=== PATIENT | male | born 1970 | race Caucasian/White ===

== ENCOUNTER 2018-01-31 16:00 | Emergency (ER) | payer OTHER, SELFPAY ==
[2018-01-31 16:08] VITALS: BP 146/88; PULSE 101; RESP 16; TEMP 36.9; O2SAT 97
--- NOTE | 2018-01-31 16:44 | ED.GENADUL_ITS ---
Disposition Clinical Impression: Laceration of scalp Disposition: HOME Condition: Good Instructions: Laceration (ED), Skin Adhesive Care (ED) Additional Instructions: Do not scrub the area or scratch the area. If you notice any r fever, chills, difficulty seeing, worsening numbness tingling pain or redness please return immediately. Please follow-up with your primary care provider within the next 1 -2 weeks for reevaluation. If you notice any worsening of your symptoms, or any new symptoms such as vomiting, diarrhea, fever, chills, shortness of breath , chest pain, numbness, weakness, or fainting , please return immediately to the emergency department for reevaluation. Please follow up with your primary care provider as soon as possible for reassessment and reevaluation. As always, it was a pleasure participating in your medical care today. Medical Decision Making - Medical Decision Making This is a pleasant 47-year-old male who presents for evaluation of laceration of the right brow. Physical exam demonstrates a small 1 cm laceration with no evidence of deep tissue involvement. Normal vision, normal movement of the eye, normal sensation on exam. Patient's laceration was irrigated and cleansed with chlorhexidine. The area was then Dermabond it with good wound edge reapproximation and excellent hemostasis. Tetanus is up-to- date. Patient tolerated the procedure well. He has been discharged home after discussion of red flags which returned. I have extensively reviewed the treatment plan and discharge instructions with the patient. I have addressed all patient concerns at this time. The patient was made aware of what symptoms to monitor for that would warrant a return to the emergency department. Discussed the plan with the patient, they demonstrate verbal understanding and agreement with our assessment and plan at this time. History of Present Illness - General Chief complaint: Laceration Stated complaint: HIT W CROWBAR Time Seen by Provider: 01/31/18 16:42 - History of Present Illness Initial comments: This is a pleasant 47-year-old male with no past medical history who presents for laceration over his right brow. The patient states that he was pulling at a nail with a crowbar when the nail came out the crowbar jumped up and hit him in his right brow. In a small superficial laceration, but due to the bleeding, and concern for potential increased in depth of the laceration he came to the ER for evaluation. In addition to the bleeding and small laceration he does complain of small bit of tingling on the right lateral aspect of his right brow. No vision changes, no pain with movement of his eye, no pain with palpation of the brow. Patient denies any headache, or any other complaints at this time. Patient denies any previous surgical history. He denies any IV or illicit drug use. He denies any pertinent family history. His tetanus is up-to-date. He has no other complaints at this time. - Related Data Ranitidine HCl [Zantac 75] 75 mg PO PRN 03/16/14 Ibuprofen 400 mg PO PRN PRN 03/17/14 Allergies Allergy/AdvReac Type Severity Reaction Status Date / Time animal dander Allergy Intermediate Asthma-like Uncoded 01/31/18 16:19 reaction Review of Systems Other: 10 point review of systems was performed, pertinent positives and negatives are noted in the history of present illness. General Exam - Other Other exam information: 1.Const: Well-nourished, Well-developed, appearing stated age 2.Eyes: PERRL, no conjunctival injection, and symmetrical lids. 3.ENT: Atraumatic external nose and ears. Moist MM. Neck: Symmetric, trachea midline, No thyromegaly. There is no evidence of raccoon eyes, gray sign, CSF rhinorrhea, mastoid tenderness, cranial crepitus, hemotympanum, exophthalmos , or hyphema. Patient demonstrates intact dentition with no signs of tooth avulsion or fracture, no signs of jaw deformity, no evidence of a LeFort's fracture, with an intact palate, nose and orbital region. There is no evidence of a nasal septal hematoma. No proptosis. Jaw closes symmetrically. Airway is clear. Patient does demonstrate a very small 1 cm relatively linear laceration over the right brow. No active bleeding. No evidence of deep tissue involvement. Sensation is intact around the eye. Normal sharma of vision, normal planes of vision. 4.CVS: +S1/S2, No murmurs or gallops. Peripheral pulses 2+ and equal in all extremities. Brisk capillary refill in all extremities. 5.RESP: Unlabored respiratory effort. Clear to auscultation bilaterally. No wheezes rales or rhonchi 6.GI: Soft, Nontender/Nondistended, No hepatosplenomegaly. No guarding or rebound. 7.MSK: Normocephalic/Atraumatic, Extremities w/o deformity or ttp No cyanosis or clubbing, Normal movement of all extremities 8.Skin: Warm, Dry. No rashes or lesions. 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 Sensation grossly intact, no focal neurologic deficits. 10.Psych: (AAO) x3. Appropriate mood and affect Course Vital Signs - 24 hr 01/31/18 16:08 Temperature 36.9 C Pulse 101 H Respiratory 16 Rate Blood Pressure 146/88 Pulse Oximetry 97
== END 2018-01-31 17:02 | disposition home or self-care (01) ==
PROVIDERS: Emergency Provider Student in an Organized Health Care Education/Training Program; PCP Nurse Practitioner
DX: S01.01XA Laceration without foreign body of scalp, initial encounter (principal); W27.8XXA Contact with other nonpowered hand tool, initial encounter
CPT/HCPCS: 12001

== ENCOUNTER 2018-10-21 00:55 | Outpatient (CLI) | payer OTHER, SELFPAY ==
--- NOTE | 2018-10-21 13:00 | DI.RAD_ITS ---
SYMPTOMS/DIAGNOSIS: DEGENERATIVE DISC DISEASE, LUMBAR SPINE, M51.36; ACUTE BACK PAIN, M54.89 LUMBOSACRAL SPINE: Five views were obtained. There is disc space narrowing at L4-5 and L5-S1 consistent with disc degeneration. There are prominent hypertrophic changes involving the vertebral endplates and facet joints at these levels, also consistent with degenerative disease. There is a mild left convex lumbar scoliosis. No other significant bony abnormality seen. CONCLUSION: DJD and degenerative disc disease at L4-5 and L5-S1. No additional significant findings.
== END 2018-10-21 01:15 ==
PROVIDERS: PCP Nurse Practitioner Family; Visit Provider Nurse Practitioner Family
DX: M54.5 Low back pain (principal); M51.37 Other intervertebral disc degeneration, lumbosacral region; M47.817 Spondylosis without myelopathy or radiculopathy, lumbosacral region
CPT/HCPCS: 72110

== ENCOUNTER 2019-03-29 11:51 | Outpatient (REF) | payer OTHER, SELFPAY ==
--- NOTE | 2019-03-29 09:40 | SKI_PTH ---
PATIENT: Teofilo Ghosh LOC: [facility] U#:[id number] AGE/SX: 48/M ROOM: RE03/29/[address]: Haris Ruano : 1970 BED: DIS: 03/29/2019 SPEC #: [id number] RECD: 03/29/19 13:01 STATUS: SHAYY RE #: [id number] BRANDIE: 03/29/19 09:[address]: Haris Ruano DEPT: Surgical Specimen RECD BY: Lucila Michaud ENTERED: 03/29/19 13:01 SP TYPE: DEANDRE SOLIS DR: Hoa Aguirre Tissues: 1 - SKIN BIOPSY(SHAVE/PUNCH) Procedures: SKIN LEVEL 4 Comments: [id number]
== END 2019-03-29 12:11 ==
LOC: NCHCN 11:51
PROVIDERS: PCP Nurse Practitioner Family; Visit Provider Specialist/Technologist Athletic Trainer
DX: D22.5 Melanocytic nevi of trunk (principal)
CPT/HCPCS: 88305

== ENCOUNTER 2020-04-18 11:51 | Outpatient (REF) | payer OTHER, SELFPAY ==
[2020-04-18 22:27] LABS: Calculated LDL 97 mg/dL (<100); Cholesterol 187 mg/dL (<200); Glucose 94 mg/dL (74-106); HDL Cholesterol 40 mg/dL (40-60); Triglyceride 254 mg/dL (<150)
[2020-04-23 15:51] LABS: PSA, Screening 0.4 ng/mL (0-3.5)
[2020-04-26 15:32] LABS: Hepatitis C Ab w Rflx HCV PCR Negative (Negative)
== END 2020-04-18 12:11 ==
LOC: NCHCN 11:51
PROVIDERS: PCP Nurse Practitioner Family
DX: Z00.00 Encounter for general adult medical examination without abnormal findings (principal); L57.0 Actinic keratosis; E66.9 Obesity, unspecified
CPT/HCPCS: 80061; 82947; 84153; 86803

== ENCOUNTER 2020-04-26 01:44 | Outpatient (CLI) | payer OTHER, SELFPAY ==
--- NOTE | 2020-04-26 11:00 | NS.NUTBLAN_ITS ---
50 year old male referred for Medical Nutrition Therapy for morbid obesity. 5'10 300 lbs BMI 44. Teofilo reports that he does not follow any regular exercise due to recent back/leg pain. He has gained 50 lbs in last couple of years. Strong family hx of IDDM. Goal weight 250 lbs. Diet recall indicates high intake of simple sugars in form on breads, juice. Mostly balanced home cooked meals and no excess in calories and servings reported. Educated Teofilo on how to follow lower carb, higher protein diet with focus on complex carbs, lean protein and non starchy vegetables. Also, encouraged him to use his exercise bike for 30 min 5 times weekly. Meal plans and recipes provided. Teofilo was engaged in education and motivated to make positive changes to improve his health. Goal is for 10 lbs weight loss per month with initial weight goal of 250 lbs. No follow up visit planned at this time.
== END 2020-04-26 02:04 ==
PROVIDERS: PCP Nurse Practitioner Family; Visit Provider Dietitian, Registered
DX: E66.01 Morbid (severe) obesity due to excess calories (principal); Z71.3 Dietary counseling and surveillance
CPT/HCPCS: 97802

== ENCOUNTER 2020-05-07 02:32 | Outpatient (CLI) | payer OTHER, SELFPAY ==
[2020-05-08 16:50] LABS: COVID-19 RT-PCR UVMMC Result Negative (Negative)
== END 2020-05-07 02:52 ==
PROVIDERS: PCP Nurse Practitioner Family; Visit Provider Surgery
DX: Z11.59 Encounter for screening for other viral diseases (principal); Z01.818 Encounter for other preprocedural examination
CPT/HCPCS: U0003

== ENCOUNTER 2020-05-10 10:15 | Day surgery (SDC) | payer OTHER, SELFPAY ==
--- NOTE | 2020-05-10 09:55 | W.COLOREPORT ---
Date of service: 05/10/20 Time of Service: 09:56 Colonoscopy Report Date of procedure: 05/10/20 Pre-op diagnosis general: CRC screen Post-op diagnosis procedure note: other Surgeon: Carmen Jean Anesthesia proc note operative: GETA Estimated blood loss (mL): 1 Pathology: other Disposition: same day Prep: Miralax/Dulcolax Retraction Time: 15 Procedure Description: After informed consent was obtained the patient was taken to the procedure room and placed in a left decubitous position. Monitors were applied and a time out was done. The patients name, date of , procedure, allergies to medications and metal in their body was reviewed. The patient was then sedated. Once sedated and comfortable a rectal exam was done. External exam was normal. Internal exam revealed a normal sphincter tone and no palpable masses. The scope was then introduced and retrofelexed. No internal hemorrhoids were identified. The scope was then advanced to the cecum w/out difficulty. The TI and appendiceal orifice were identified. The prep was good. The scope was then slowly retracted over 15 minutes back into the rectum. Polyps were removed at cecum. Flat 1cm polyp. Removed in piecemeal w/ cold forcept. All specimen is retrieved with no bleeding noted. He has mild diverticul confined to the sigmoid colon with no signs of active bleeding or infection. The scope was removed and the patient was woken up and taken back to Same day surgery in stable condition. The patient tolerated the procedure well and there were no immediate complications. Follow up: The patient should follow up in 5-10 path pd, years unless they develop changes in bowel habits or other new gastrointestinal complaints.
--- NOTE | 2020-05-10 09:56 | W.PM.DS.N ---
Date of service: 05/10/20 Time of Service: 09:56 Discharge Plan Disposition Patient Disposition: HOME Condition: Good Discharge Details Reason For Visit: colon Attending Provider: Carmen Jean Primary Care Provider: Hoa Aguirre Home Meds and New Rx's Prescriptions: Continued cholecalciferol (vitamin D3) 50 mcg (2,000 unit) capsule 50 mcg PO DAILY RF: 0 albuterol sulfate [ProAir HFA] 90 mcg/actuation HFA aerosol inhaler 2 puff inhalation Q6H PRNRF: 0 triamcinolone acetonide 0.1 % cream 1 applic topical BID RF: 0 ibuprofen 200 MG tablet 400 mg PO PRN PRN (Reason: Pain) RF: 0 terbinafine HCl 1 % Cream 1 applic TOPICAL BID RF: 0 Discharge Instructions Additional Instructions: Findings:x1 sm polyp diverticula Follow up:5-10 yrs. Send a letter with the results of pathology in 2 to 3 weeks, and when to repeat the colonoscopy. Please call if you develop: fevers >101.5 Nausea or Vomiting Abdominal pain that is not transient DAY SURGERY UNIT POST COLONOSCOPY INSTRUCTIONS 1. Because there will be medication in your system for the next 24 hours, you may feel a little sleepy. Your coordination will be affected. Therefore: a. Do not drive or operate dangerous equipment for 24 hours. b. Do not drink alcohol beverages for 24 hours (not even beer). c. Plan to go home and rest for the day. 2. Generally there are no restrictions on your activity after a day or so has gone by, but you may feel a bit fatigued for a few days. 3 After you arrive home you may have a light meal and return to a normal diet as you can tolerate it without feeling sick to your stomach. 4. After surgery, you may feel pain or discomfort. This should be only transient, but if it persists please contact your doctor. 5. If there are any questions regarding the findings of your procedure, please feel free to contact your doctor. 6. If you are unable to contact your doctor with a problem, contact the hospital at [phone]. 7. Continue all your regular medications unless directed otherwise. I understand the above instructions and have no questions. Signature of Patient or Responsible Adult Escort Date/Time Name of Responsible Adult Escort Signature of Nurse Date/Time Activity:: No strenuous activity or lifting over 20 pounds time 24 hours. Diet:: Small light meals x24 hours Discharge Orders Discharge Orders: Discharge Order (Routine); Ordered 05/10/20 Ordered By: Carmen Jean [facility] Medical History Allergic rhinitis Animal dander allergy Back pain, acute Degenerative disc disease, lumbar History of asthma History of head injury Hx of fracture of ankle screws present Mood disorder Nevus, atypical Obesity Rash Shellfish allergy Skin tag Social History (Updated 04/26/20 @ 10:35 by RACHEL Garces) Smoking/Tobacco Use Status: Never Smoking risk assessment performed?: Yes Alcohol Intake: current Alcohol Intake frequency: holidays/special occasions only Drug use: Never Substance use type: does not use Do you feel safe at home: Yes Do you feel safe in your relationship?: Yes
[2020-05-10 10:33] VITALS: BP 141/86; PULSE 84; RESP 20; TEMP 36.7; O2SAT 99
[2020-05-10] MEDS: Lactated Ringers 1,000 ML 80 ML IV (11:20)
--- NOTE | 2020-05-10 11:45 | BOWEL_PTH ---
PATIENT: Teofilo Ghosh LOC: [facility] U#:[id number] AGE/SX: 50/M ROOM: RE05/10/[address]: Carmen Jean : 1970 BED: DIS: 05/10/2020 SPEC #: [id number] RECD: 05/10/20 12:33 STATUS: SHAYY REQ #: [id number] BRANDIE: 05/10/20 11:[address]: Carmen Jean DEPT: Surgical Specimen RECD BY: Lucila Michaud ENTERED: 05/10/20 12:34 SP TYPE: Bowel OTHR DR: Hoa Aguirre Tissues: 1 - BIOPSY BOWEL Procedures: GROSS AND MICRO LEVEL 4 Comments: [id number]
--- NOTE | 2020-05-10 12:18 | PDOC.DSDIS_ITS ---
Discharge Plan Disposition Patient Disposition: HOME Condition: Good Discharge Details Reason For Visit: colon Attending Provider: Carmen Jean Primary Care Provider: Hoa Aguirre Home Meds and New Rx's Prescriptions: Continued cholecalciferol (vitamin D3) 50 mcg (2,000 unit) capsule 50 mcg PO DAILY RF: 0 albuterol sulfate [ProAir HFA] 90 mcg/actuation HFA aerosol inhaler 2 puff inhalation Q6H PRNRF: 0 triamcinolone acetonide 0.1 % cream 1 applic topical BID RF: 0 ibuprofen 200 MG tablet 400 mg PO PRN PRN (Reason: Pain) RF: 0 terbinafine HCl 1 % Cream 1 applic TOPICAL BID RF: 0 Discharge Instructions Additional Instructions: Findings:x1 sm polyp diverticula Follow up:5-10 yrs. Send a letter with the results of pathology in 2 to 3 weeks, and when to repeat the colonoscopy. Please call if you develop: fevers >101.5 Nausea or Vomiting Abdominal pain that is not transient DAY SURGERY UNIT POST COLONOSCOPY INSTRUCTIONS 1. Because there will be medication in your system for the next 24 hours, you may feel a little sleepy. Your coordination will be affected. Therefore: a. Do not drive or operate dangerous equipment for 24 hours. b. Do not drink alcohol beverages for 24 hours (not even beer). c. Plan to go home and rest for the day. 2. Generally there are no restrictions on your activity after a day or so has gone by, but you may feel a bit fatigued for a few days. 3 After you arrive home you may have a light meal and return to a normal diet as you can tolerate it without feeling sick to your stomach. 4. After surgery, you may feel pain or discomfort. This should be only transient, but if it persists please contact your doctor. 5. If there are any questions regarding the findings of your procedure, please feel free to contact your doctor. 6. If you are unable to contact your doctor with a problem, contact the hospital at [phone]. 7. Continue all your regular medications unless directed otherwise. I understand the above instructions and have no questions. Signature of Patient or Responsible Adult Escort Date/Time Name of Responsible Adult Escort Signature of Nurse Date/Time DIVERTICULAR DISEASE OVERVIEW ? A diverticulum is a pouch-like structure that can form through points of weakness in the muscular wall of the colon (ie, at points where blood vessels pass through the wall). Diverticulosis affects men and women equally. The risk of diverticular disease increases with age. It occurs throughout the world but is seen more commonly in developed countries. WHAT IS DIVERTICULAR DISEASE? Diverticulosis ? Diverticulosis merely describes the presence of diverticula. Diverticulosis is often found during a test done for other reasons, such as flexible sigmoidoscopy, colonoscopy, or barium enema. Most people with diverticulosis have no symptoms and will remain symptom free for the rest of their lives. A person with diverticulosis may have diverticulitis, or diverticular bleeding. Diverticulitis ? Inflammation of a diverticulum (diverticulitis) occurs when there is thinning and breakdown of the diverticular wall. This may be caused by increased pressure within the colon or by hardened particles of stool, which can become lodged within the diverticulum. The symptoms of diverticulitis depend upon the degree of inflammation present. The most common symptom is pain in the left lower abdomen. Other symptoms can include nausea and vomiting, constipation, diarrhea, and urinary symptoms such as pain or burning when urinating or the frequent need to urinate. Diverticulitis is divided into simple and complicated forms. ?Simple diverticulitis, which accounts for 75 percent of cases, is not associated with complications and typically responds to medical treatment without surgery. ?Complicated diverticulitis occurs in 25 percent of cases and usually requires surgery. Complications associated with diverticulitis can include the following: ?Abscess ? a localized collection of pus ?Fistula ? an abnormal tract between two areas that are not normally connected (eg, bowel and bladder) ?Obstruction ? a blockage of the colon ?Peritonitis ? infection involving the space around the abdominal organ ?Sepsis ? overwhelming body-wide infection that can lead to failure of multiple organs Diverticular bleeding ? Diverticular bleeding occurs when a small artery located within a diverticulum is eroded and bleeds into the colon. Diverticular bleeding usually causes painless bleeding from the rectum. In approximately 50 percent of cases, the person will see maroon or bright red blood with bowel movements. Is bleeding with a bowel movement normal? ? It is not normal to see blood in a bowel movement; this can be a sign of several conditions, most of which are not serious (eg, hemorrhoids) but some of which are serious and require immediate treatment. Anyone who sees blood after a bowel movement should consult with their healthcare provider to determine if further testing or evaluation is needed. DIVERTICULOSIS AND DIVERTICULITIS DIAGNOSIS ? Diverticulosis is often found during tests performed for other reasons. ?Barium enema ? This is an x-ray study that uses barium in an enema to view the outline of the lower intestinal tract. This is an older test and has been largely replaced by computed tomography (CT) scan. ?Flexible sigmoidoscopy ? This is an examination of the inside of the sigmoid colon with a thin, flexible tube that contains a camera. ?Colonoscopy ? This is an examination of the inside of the entire colon. ?CT scan ? A CT scan is often used to diagnose diverticulitis and its complications. If diverticulitis (not just diverticulosis) is suspected, the above three tests should not be used because of the risk of perforation. TREATMENT Diverticulosis ? People with diverticulosis who do not have symptoms do not require treatment. However, most clinicians recommend increasing fiber in the diet, which can help to bulk the stools and possibly prevent the development of new diverticula, diverticulitis, or diverticular bleeding. Fiber is not proven to prevent these conditions in all patients but may help to control recurrent episodes in some. Increase fiber ? Fruits and vegetables are a good source of fiber. Fiber content of packaged foods can be calculated by reading the nutrition label. Seeds and nuts ? Patients with diverticular disease have historically been advised to avoid whole pieces of fiber (such as seeds, corn, and nuts) because of concern that these foods could cause an episode of diverticulitis. However, this belief is completely unproven. We do not suggest that patients with diverticulosis avoid seeds, corn, or nuts. Diverticulitis ? Treatment of diverticulitis depends upon how severe your symptoms are. Home treatment ? If you have mild symptoms of diverticulitis (mild abdominal pain, usually left lower abdomen), you can be treated at home with a clear liquid diet and oral antibiotics. However, if you develop one or more of the following signs or symptoms, you should seek immediate medical attention: ?Temperature >100.1?F (38?C) ?Worsening or severe abdominal pain ?An inability to tolerate fluids Hospital treatment ? If you have moderate to severe symptoms, you may be hospitalized for treatment. During this time, you are not allowed to eat or drink; antibiotics and fluids are given into a vein. If you develop an abscess of the colon, you may require drainage of the abscess (usually performed by placing a drainage tube across the abdominal wall) or by surgically opening the affected area. Surgery ? If you develop a generalized infection in the abdomen (peritonitis), you will usually require an emergency operation. A two-part operation may be necessary in some cases. ?The first operation involves removal of the diseased colon and creation of a colostomy. A colostomy is an opening between the colon and the skin, where a bag is attached to collect waste from the intestine. The lower end of the colon is temporarily sewed closed to allow it to heal. ?Approximately three to six months later, a second operation is performed to reconnect the two parts of the colon and close the opening in the skin. You are then able to empty your bowels through the rectum. Sometimes patients require up to a year to recover from the first operation, depending on how sick they were. In non-emergency situations, the diseased area of the colon can be removed and the two ends of the colon can be reconnected in one operation, without the need for a colostomy. Surgery versus medical therapy ? An operation to remove the diseased area of the colon may be necessary if you do not improve with medical therapy. After an episode of uncomplicated diverticulitis, elective surgery is generally not required as the risk of another attack or requiring emergency surgery is low. However, patients with persistent symptoms attributable to diverticulitis, a history of complicated diverticulitis, or a compromised immune system should be evaluated for possible surgery to prevent another attack. In such patients, another attack has been associated with a higher risk of complications or . Of course, the decision will also depend in part upon your other medical conditions and ability to undergo surgery. In many cases, an elective operation can be performed laparoscopically, using small incisions, rather than the typical vertical (up and down) abdominal incision. Laparoscopic surgery usually allows you to recover more quickly and shortens the hospital stay. After diverticulitis resolves ? After an episode of diverticulitis resolves, if you have not had a recent colonoscopy, the entire length of the colon should be evaluated to determine the extent of disease and to rule out the presence of abnormal lesions such as polyps or cancer. Recommended tests include colonoscopy, barium enema and sigmoidoscopy, or CT colonography. Diverticular bleeding ? Most cases of diverticular bleeding resolve on their own. However, some people will need further testing or treatment to stop bleeding, which may include a colonoscopy, angiography (a treatment that blocks off the bleeding artery), bleeding scan, or surgery. DIVERTICULAR DISEASE PROGNOSIS Diverticulosis ? Over time, diverticulosis may cause no problems or it may cause episodes of bleeding and/or diverticulitis. Approximately 15 to 25 percent of people with diverticulosis will develop diverticulitis, while 5 to 15 percent will develop diverticular bleeding. Diverticulitis ? Approximately 85 percent of people with uncomplicated diverticulitis will respond to medical treatment, while approximately 15 percent of patients will need an operation. After successful treatment for a first attack of diverticulitis, one-third of patients will remain asymptomatic, one- third will have episodic cramps without diverticulitis, and one-third will go on to have a second attack of diverticulitis. The prognosis tends to remain similar following a second attack of dive rticulitis. Only 10 percent of people remain symptom-free after a second attack. Subsequent attacks tend to be of similar severity, not increasing in severity as previously believed. High Fiber Diet What is Dietary Fiber? All fiber comes from plants, bushes, marzena or trees. Of course, the ones that we eat provide us with fruits, vegetables and grains. There are many different types of fiber but the three that are most important to the health of the body are: Insoluble Fiber This fiber does not dissolve in water, nor is it fermented by the bacteria residing in the colon. Rather, it retains water and in so doing, helps to promote a larger, bulkier and more regular bowel activity. This, in turn, may be important in preventing disorder such as diverticulosis and hemorrhoids, and in sweeping out certain toxins and cancer causing carcinogens. Sources of insoluble fiber are: ? whole grain wheat and other whole grains ? corn bran, including popcorn, unflavored and unsweetened ? nuts and seeds ? potatoes and the skins from most fruits from trees such as apples, bananas and avocados ? many green vegetables such as green beans, zucchini, celery and cauliflower ? some fruit plants such as tomatoes and kiwi Soluble Fiber These fibers are fermented or used by the colon bacteria as a food source or nourishment. When these good bacteria grow and thrive, many health benefits occur in both the colon and the body. Soluble fiber is present in some degree in most edible plant foods, but the ones with the most soluble fiber include: ? legumes such as peas and most beans, including soybeans ? oats, rye and barley ? many fruits such as berries, plums, apples bananas and pears ? certain vegetables such as broccoli and carrots ? most root vegetables ? psyllium husk supplement products Prebiotic Soluble Fiber These are relatively newly discovered soluble plant fibers. The technical name for this fiber is inulin or fructan. When these soluble fibers are fermented by the good colon bacteria, some further significant health benefits have been shown to occur by research in many medical centers. These soluble prebiotic fibers occur in significant amounts in: ? asparagus ? yams ? onions ? garlic ? bananas ? leeks ? agave ? chicory and other root vegetables such as [place] artichokes ? wheat, rye and barley (smaller amounts) Benefits of a High Fiber Diet The health benefits of a high fiber diet, consumed on a regular basis and reaching recommended amounts (below), are now fairly well-defined. There are some additional benefits in the early research stage with the prebiotic soluble fibers. What is now known regarding a high fiber diet include: Bowel Regularity A high fiber diet promotes regularity with a softer, bulkier and regular stool pattern. This decreases the chance of hemorrhoids, diverticulosis and perhaps colon cancer. Cholesterol and Reduced Triglycerides The soluble fibers are the ones that will reduce cholesterol levels when used on a regular basis. Psyllium husk and prebiotic soluble fiber will also reduce cholesterol. They may also reduce the incidence of coronary heart disease. Oats, flax seeds and legumes or beans are the recommended fibers. Colon Polyps and Cancer It is still not certain if a high fiber diet helps prevent colon cancer. Considerable research suggests that this may occur. Certainly it makes sense to increase regularity and so speed the movement of cancer causing carcinogens through the bowel. In addition, reducing a heavy meat diet reduces the bile flow from the liver in a favorable way. This, too, reduces the amount of carcinogens that reach and are manufactured in the colon. Finally, a high fiber diet, including prebiotic soluble fiber, increases the integrity and health of the wall of the colon. The risk of cancer may be reduced. Colon Wall Integrity A high fiber diet changes the bacterial makeup of the colon toward a more favorable balance. For instance, it is known that those people with obesity, diabetes type 2 and inflammatory bowel disease have a predominance of bad bacteria in the colon. This, in turn, may render the bowel wall weak and allow bacteria and, indeed, even toxins to seep through. A high fiber diet with a modest reduction in animal and meat products may return the bacterial makeup to a more positive balance. This, in particular, has been seen when the soluble fiber prebiotics are added to the diet. Blood Sugar Soluble fiber such as in legumes (beans), oats and in prebiotic fibers slows the absorption of blood sugar and so helps regulate the sugar in the blood. Insoluble fiber on a regular basis is associated with reduced risk of type 2 diabetes. Weight Loss High fiber diets are more filling and give a sense of fullness sooner than an animal and meat based diet does. In addition, the soluble prebiotic fibers have been shown to turn off the hunger hormones produced in the wall of the gut and to increase the hormones that give a sense of fullness. Those hormones are made in the wall of the gut. New medical research has shown that the bacterial makeup in the colon in overweight people is abnormal to the extent that they manufacture and absorb almost twice the number of calories through the colon wall as do normals. Prebiotic fibers (below) will help change this hormonal balancein a favorable way. Bacteria and the Function of the Colon The colon finishes the digestive process. Hopefully, the waste products move through in a nice regular manner. Insoluble fibers help this process by retaining water and so producing a bulkier, softer stool, which is easy to pass. The additional role of the colon is to provide a home for an enormous number of micro-organisms, mostly bacteria. Recent research has shown that there are over 1,000 species of bacteria with a total bacterial count ten times the number of cells in the body. These bacteria play a major role in keeping the colon wall itself healthy. In addition, these good bacteria produce a very strong immune system for the body. They significantly increase calcium absorption and bone density. They provide other documented benefits. It is the soluble fibers in the diet that are so effective in stimulating the growth of good colon bacteria. How Much is Enough? The amount of fiber in food is measured in grams. National nutritional authorities recommend the following amounts of dietary fiber daily. Under Age 50 Over Age 50 Men 38 grams 30 grams Women 25 grams 21 grams For a week or so, it is best to tally the amount of fiber you are consuming. Boxed and packaged foods will have the amount of fiber per serving on the nutrition label. Which Fibers and Which Foods are Best? As noted, healthy fiber is only found in plants. The three major categories are whole grains, fruits and vegetables. Whole Grains Wheat, oats, barley, wild or brown rice, amaranth, buckwheat, bulgur, corn, millet, quinoa, rye, sorghum, teff and triticals. By far, wheat, oats and wild or brown rice are most common. Always buy whole grain products. White bread, baked goods and rolls almost always are made from wheat flour. Wheat flour is white because most of the fiber, vitamins and other nutrients have been removed. Try not buy enriched grains. What this means is that simple white flour has had vitamins added to it by the international trade teacher. The word, enriched, implies a good and healthy product. On the contrary, enriched means that most of the fiber has been removed and a few vitamins added. Fruits Fruits come from trees such as apple and pear or from bushes or marzena. You should eat a wide variety of fruits, preferably with every meal. In many cases, the skin of a fruit such as apple will contain much of the insoluble fiber while the pulp contains most of the soluble fiber. To the extent possible, buy organic fruits as these will have little or no pesticides. Always wash fruit. Vegetables Eat a wide variety of vegetables. They should be a mainstay of lunch and dinners. Frozen vegetables retain as much nutrition and fiber as fresh vegetables. As with fruit, try to buy organic to reduce any residual pesticide ingestion. Wash fresh vegetables thoroughly. Cruciferous vegetables such as broccoli, [place] sprouts and cauliflower contain certain chemicals such as sulforaphane. This substance has very strong anti-cancer properties and should be eaten frequently. Legumes, Beans, Peas and Soybeans These vegetables have plenty of soluble fiber and should be part of a varied vegetable intake. Beans, in particular, contain a certain type of fiber that may lead to harmless gas or bloating. Nuts and Seeds These are rich sources of fiber and are a good substitute for sweets such as candies and baked sweet goods. While nuts and seeds are rich in fiber, they also contain vegetable fat and so can and do add calories. Read the Labels As noted, fresh and frozen foods are usually better. They have good nutrition and few, if any, chemicals added to them. When buying packaged foods and, in particular grains, look for three things: ? The first word on the label should be whole, such as whole wheat or whole grain. ? Check out the calories and the amount of fiber in a serving. ? How many and what other additives or chemicals are added. Fewer is always better. Do you know what each additive does? Some are added not for the benefit of the supervisor spring up but rather for manufacturers. These could and do include sugar, artificial flavor, chemicals to prevent oxidation and spoilage, emulsifiers to blend the product. You have to be a service station helper. Fiber Facts, Nuggets and Pearls ? For breakfast you can easily get the day started well by using a high fiber, whole grain cereal. Check the labels. Add fruit such as blueberries and bananas. If you are an egg eater, use whole wheat or grain toast. Adding wheat germ gives you a good fiber kick. ? Always use whole grain or wheat with rolls and sandwiches. Does your fast food store not have them? Perhaps you look elsewhere. Eating an occasional black burrows or veggie burger provides variety. ? Snacks should consist of fruit and/or nuts. While nuts are loaded with fiber, they are an energy rich food, meaning they have a lot of calories in a small packet. ? Fruit juices should contain pulp. Clear juices such as clear orange, pear or apple juice contain little fiber and have a lot of fructose. Prune juice is usually high in fiber. ? Homemade soups ? adding fresh or frozen vegetables to a chicken or vegetable stock is a good way to start homemade soup. ? Salads ? adding cooked and then chilled vegetables provide great flavoring to almost any salad. Remember, a shirley salad has lots of cooked corn in it. Small slices of apples or oranges and nuts such as chopped walnuts or sliced almonds always adds taste, variety and fiber to almost any salad. ? Fruit ? Try to eat fruit of some type with almost every meal. ? Rethink how you place the various foods on your dinner plate. Reducing the portions of the meat or animal food portion to the side with equal or more portions of vegetables, legumes and fruits portion always allows for more fiber. There was never anything magic about making the meat or animal food portion the main part of the dinner plate. Eating from smaller plates can, over time, trick your mind and intermediate habit of using a dinner plate. Again, there is nothing magic in an 11, 12, or 13 inch dinner plate. Fiber Supplements There are a variety of fiber supplements available on the food or pharmacy shelves. Psyllium This soluble plant fiber has been used in [place] for over 2,000 years. It is a soluble fiber with mucilage in it. This acts to retain a lot of water and also is fermented by colon bacteria. When 7 grams a day are used, it does lower cholesterol. Metamucil in various forms is psyllium. Methyl Cellulose All the cellulose products come from finely ground wood chips which are then treated in a variety of ways such as boiling in acids. Methyl cellulose is an insoluble fiber which does dissolve in water. It is also an emulsifier, meaning it blends oils and water. Citrucel is methyl cellulose (MC). MC may not be appropriate for Crohn?s disease or ulcerative colitis as several medical studies have shown that certain emulsifiers dissolve the mucous lining of the colon in animals prone to Crohn?s disease. This then allows bacteria to invade the underlying tissue. Inulin Inulin is a soluble prebiotic fiber found in many foods and which are fermented mostly in the left side of the colon. It is available in a supplement as generic inulin and in Fiber Choice. Oligofructose FOS These are also prebiotic fibers. They are fermented very quickly in the right side of the colon. Prebiotin This product is a combination of oligofructose, which feeds the bacteria in the right side of the colon and inulin, which does the same in the left side of the colon. There seems to be a benefit for this particular formula based on medical research. Prebiotic Soluble Fiber These may be the healthiest of all the soluble fibers. They grow in many plants and have had a great deal of research done on them in the last 10-15 years. These fibers are found in asparagus, yams and other root vegetables such as chicory, garlic, onion, leeks and in smaller amounts in wheat. This research has shown the following: ? Increase in good and decrease in bad colon bacteria ? Increase calcium absorption and enhanced bone mass ? Enhanced immune system ? Appetite and weight control by changing the hormone appetite signals to the brain ? May decrease colon cancer incidence ? Reduce or correct a leaky colon Eating a wide variety of plant food up to the recommended amount will likely give you enough prebiotic fiber. Supplements such as Prebiotin can be added to the diet. Short Chain Fatty Acids (SCFA) Some rather remarkable research findings have shown that one of the benefits of ingesting a lot of soluble fiber, in particular the prebiotic ones, results in larger amounts of SCFAs in the colon. These SCFAs are made by the good bacteria in the colon such as Bifidobacter and Lactobacillus. These small molecules have been shown to do the following: ? Enhance the health and integrity of the colon wall ? Provide nourishment for the cells that actually line the colon ? Increases the acidity of the colon which is a very real health benefit ? Stabilize blood sugar for diabetics ? Reduce blood cholesterol and triglyceride ? Significantly enhance immunity ? May be a benefit for Crohn?s disease and ulcerative colitis patients Fiber and Gas Everyone has intestinal gas and that is a good thing. It means that bacteria, hopefully the good ones, are thriving. The normal amount of flatus passed each day depends on sex and what is eaten. The normal number of flatus is 10-20 times a day. When the bacteria that make intestinal gases are growing, it also means that other good bacteria are using the same fibers to grow and produce multiple health benefits, including the production of healthy short-chain fatty acids. These substances are produced quietly in the colon and produce many health-related outcomes. Soluble fiber should always be used in a gradual manner. If too much is c onsumed at any one time, then excess, but harmless, intestinal gas can occur. People with irritable bowel syndrome are particularly prone to bloating and mild cramping. In this instance, soluble fiber in the diet or supplement should be used in small doses and increased gradually. Finally, prebiotic fibers tend to cause the production of short-chain fatty acids which acidify the colon. This, in turn, reduces or stops the growth of bacteria that make the smelly hydrogen sulfide gases that produce noxious flatus. People who consume many vegetables with prebiotics or take a prebiotic fiber supplement often have non-odoriferous flatus. Fiber and Irritable Bowel Syndrome Irritable bowel syndrome (IBS) is one of the most common disorders of the lower digestive tract. The symptoms of IBS can be quite varied. They can be a mix of several symptoms such as constipation, diarrhea, crampy abdominal discomfort, bloating and gas. An attack of IBS can be triggered by emotional tension and anxiety, poor dietary habits and certain medications. It is now known that infections in the intestine can lead to long-term IBS symptoms. Increased amounts of fiber in the diet can help relieve the symptoms of irritable bowel syndrome by producing soft, bulky stools. This helps to normalize the time it takes for the stool to pass through the colon. Recent medical research with newer techniques has shown some surprising and dramatic findings for IBS patients. Specifically, there is a very significant and abnormal shift of bacteria from those that provide health benefits to those bad bacteria that we really do not want in the gut. The technical name for this bad group of bacteria is called Firmicutes. Along with this abnormal bacterial collection, there is a smoldering low-grade inflammation in the gut wall that may contribute to symptoms. The goal for IBS patients should be to gradually increase the soluble dietary fibers in the diet so as to promote the growth of good bacteria and so suppress the bad ones along with the associated inflammation. IBS patients need to be careful of the amount of soluble fiber they consume. The reason for this is that, while the good colon bacteria thrive on these fibers and produce health benefits, other gas-forming bacteria may generate excessive but harmless gas and subsequent bloating. Thus, soluble plant fibers or a dietary prebiotic supplement should be taken in small initial doses and then gradually increased to tolerance. Fiber and Colon Polyps/Cancer Colon cancer is a major health problem. This disease is most common in Western cultures. It is not seen very often in rural cultures where the diet is mostly plant based. Usually, colon cancer starts out as a colon polyp, a benign mushroom-shaped growth. In time it grows, and in some people it becomes cancerous. Colon cancer is usually always curable if polyps are removed when found or if surgery is performed at an early stage. It is now known that people can inherit the risk of developing colon cancer, but diet is important, too. As noted, there is a very low rate of colon cancer in residents of countries where grains are unprocessed and retain their fiber. It seems that in the Western world, cancer-containing agents (carcinogens) remain in contact with the colon wall for a longer time and in higher concentrations. So, a large bulky stool may act to dilute these carcinogens by moving them through the bowel more quickly. Less carcinogenic exposure to the colon may mean fewer colon polyps and less cancer. A very current review of the entire world?s literature on the effect of fiber on colon polyps and cancer prevention has shown rather clearly that for every 10 grams of fiber added to the diet, there is a 10% reduction in incidence of colon cancer. So the recommended 30 gram fiber diet would result in a 30% less chance of getting these tumors. There are also substances produced in the colon by the good bacteria that seem to retard certain pre-cancer factors from developing. They are called short- chain fatty acids (SCFA). See above for description of SCFAs. A high fiber diet increases these substances. So, the combination of dietary fiber and the production of short-chain fatty acids have a clear health benefit. Fiber and Diverticulosis Prolonged, vigorous contraction of the colon over a long period of time may result in diverticulosis. This increased pressure causes small and, eventually, larger ballooning pockets to form. These pockets by themselves cause no problem. However, sometimes they become infected (diverticulitis) or even break open (perforate) causing infection or inflammation within the abdomen (peritonitis). A high fiber diet increases the bulk in the stool and thereby reduces the pressure within the colon. By so doing, the formation of pockets may be reduced or possibly even stopped. In the past, many physicians were fearful that seeds as in tomatoes, nuts or berries were harmful and could get inside these pockets and rattle around, causing damage. We now know that this has never been the case and that these foods contain lots of fiber and are actually beneficial for diverticulosis patients. Certain bulking agents such as psyllium are traditional types of bulk producing supplements. Psyllium is a soluble fiber. Combining it with insoluble fiber as in wheat bran or corn bran (no gluten) can enhance this bulking effect even more. A product containing a prebiotic, psyllium and wheat bran is probably a very good combination for bowel regularity. Prebiotin Regularity/Diverticulosis is one such product. Activity:: No strenuous activity or lifting over 20 pounds time 24 hours. Diet:: Small light meals x24 hours Discharge Orders Discharge Orders: Discharge Order (Routine); Ordered 05/10/20 Ordered By: Carmen Jean DS: Diagnosis Discharge Diagnosis (1) Adenomatous colon polyp: Status: Acute (2) Diverticula of colon: Status: Acute
[2020-05-10 12:29] VITALS: BP 119/66; PULSE 69; RESP 18; TEMP 36.5; O2SAT 98
== END 2020-05-10 12:44 | disposition home or self-care (01) ==
LOC: SUR 10:16
PROVIDERS: PCP Nurse Practitioner Family; Visit Provider Surgery
PROC: 0DJD8ZZ Inspection of Lower Intestinal Tract, Via Natural or Artificial Opening Endoscopic (ICD-10-PCS; CPT 45378; principal; 2020-05-10 11:00)
DX: Z12.11 Encounter for screening for malignant neoplasm of colon (principal); K57.30 Diverticulosis of large intestine without perforation or abscess without bleeding
CPT/HCPCS: 45380; 88305; J2001

== ENCOUNTER 2021-06-06 11:57 | Emergency (ER) | payer OTHER, SELFPAY ==
[2021-06-06] VITALS (24 sets, daily range): BP systolic 117–184; BP diastolic 65–91; PULSE 60–103; RESP 7–18; TEMP 36.8; O2SAT 94–100
--- NOTE | 2021-06-06 11:45 | RT.EKG_ITS ---
APPROVED REPORT Exam: Resting ECG Reason for Exam: chest pain Patient Location: E HR:101 bpm ECG Measurements Heart Rate 101 AXIS AL 171 P 60 QRSd 92 QRS 4 QT 327 T 16 QTc 424 Conclusion Sinus tachycardia...rate> 99 no stemi
--- NOTE | 2021-06-06 12:05 | ED.GENADUL_ITS ---
Discharge Plan Disposition Patient Disposition: HOME Condition: Stable Discharge Details Clinical Impression: Chest pain, Palpitations Primary Care Provider: Hoa Aguirre ED Provider: Teofilo Franco Home Meds and New Rx's Prescriptions: Continued cholecalciferol (vitamin D3) 50 mcg (2,000 unit) capsule 50 mcg PO DAILY RF: 0 albuterol sulfate [ProAir HFA] 90 mcg/actuation HFA aerosol inhaler 2 puff inhalation Q6H PRNRF: 0 ibuprofen 200 MG tablet 400 mg PO PRN PRN (Reason: Pain) RF: 0 Discharge Instructions Instructions: Chest Pain (ED) Additional Instructions: your cat scan, ekg and blood work did not show concerning findings at this time you should follow up with your primary care provider within a week and also inform them of the nodule in your lung as you may require repeat imaging in the future, the nodule was 6 x 5 millimeters if you feel more ill, have severe worsening pain or difficulty breathing return to the emergency department Medical Decision Making 51 yo male who has no significant chronic medical problems, denies history of smoking and rarely drinks, comes in with chest discomfort. He states he has had 2 days of intermittent sensation of fullness and fluttering that lasts a few minutes. He denies any diaphoresis, dyspnea, n/v. He denies pain with exertion or radiation of the pain. He arrives appearing well speaking in full sentences. He has no abdominal tenderness, clear lungs and no murmurs. HE has no rashes of the chest wall and does have pain with palpation of the left chest. Suspect chest wall pain but will evaluate for acs with ekg/troponin and obtain cta to evaluate for dissection. He has no tachycardia or hypoxia so doubt PE. Heart score is 2 so if reassuring workup likely can have outpatient follow up cta negative for acute findings, has a lung nodule that he was informed of and will f/u with pcp for. Will repeat troponin. He does note intermittent fluttering sensation, will have RT place holter monitor while second troponin is pending second troponin negative and he is symptom free and stable, placed a holter monitor and he will f/u with pcp, return precautions given Differential Diagnosis Differential Diagnosis: nstemi, afib, chest wall pain Imaging Data Radiologic Study: Attestation: I personally reviewed and interpreted this imaging study as follows: Imaging: CT Scan Radiologist's impression: no acute findings Lab Data Lab results reviewed: Yes I reviewed the patient's lab results. ECG Data Attestation: I personally reviewed and interpreted this ECG (s) as follows: Prior ECG tracings: not available for review Interpretation: sinus tachycardia, rate of 101, no stemi HPI General Mode of arrival: ambulatory . Date/Time Provider Initiated Documentation: 06/06/21 11:58 . Limitations to Documentation: no limitations . Information obtained by: patient . History of Present Illness 51 year old M presents to the emergency department with the chief complaint of chest pain, described as mild, and is localized to the chest. Patient reports no radiation. Patient started experiencing this day(s) (2) and it has been intermittent. No relieving factors improve symptom(s), No exacerbating factors reported . Patient notes no other symptoms.. Related Data Home Medications Medication Instructions Recorded Confirmed ibuprofen 400 mg PO PRN PRN 03/17/14 06/06/21 albuterol sulfate 90 mcg/actuation 2 puff INHALATION Q6H PRN 03/28/20 06/06/21 aerosol inhaler cholecalciferol (vitamin D3) 50 50 mcg PO DAILY 04/26/20 06/06/21 mcg (2,000 unit) capsule Allergies Allergy/AdvReac Type Severity Reaction Status Date / Time animal dander Allergy Verified 06/06/21 12:35 house dust Allergy Verified 06/06/21 12:35 mold Allergy Verified 06/06/21 12:35 pollen extracts Allergy Verified 06/06/21 12:35 shellfish derived Allergy GI issues Verified 06/06/21 12:35 Review of Systems All systems reviewed & are unremarkable except as noted in HPI and below Constitutional Constitutional: Denies chills, Denies fever(s) and Denies weakness Cardiovascular Cardiovascular: Denies dyspnea Respiratory Respiratory: Denies cough and Denies dyspnea Gastrointestinal Gastrointestinal: Denies nausea and Denies vomiting Genitourinary Genitourinary: Denies dysuria Neurologic Neurologic: Denies weakness PFSH All Active Problems (Updated 06/06/21 @ 13:27 by Teofilo Franco MD) Chest pain (Acute) Palpitations (Acute) Diverticula of colon (Acute) Adenomatous colon polyp (Acute) Medical History (Updated 06/06/21 @ 13:27 by Teofilo Franco MD) Allergic rhinitis Animal dander allergy Back pain, acute Degenerative disc disease, lumbar History of asthma History of head injury Hx of fracture of ankle screws present Mood disorder Nevus, atypical Obesity Rash Shellfish allergy Skin tag Surgical History (Updated 05/22/20 @ 16:06 by Lindsey Lerma RN) History of colonoscopy (~05/10/20) Social History (Updated 04/26/20 @ 10:35 by RACHEL Garces) Smoking/Tobacco Use Status: Never Smoking risk assessment performed?: Yes Alcohol Intake: current Alcohol Intake frequency: a few times a month Drug use: Never Substance use type: does not use Do you feel safe at home: Yes Do you feel safe in your relationship?: Yes Exam Const General: no acute distress Orientation: alert HENMT Head: normal to inspection Ears: external ears normal General nose exam: external nose normal Mouth: moist mucous membranes Eyes General: appearance normal, both eyes and all related structures Neck Neck: normal visual inspection Chest Chest: normal inspection of the chest Resp Effort & Inspection: normal respiratory effort and able to speak in complete sentences Cardio Rate: regular rate Skin General skin exam: no rashes or lesions noted Neuro General: patient alert and patient oriented x3 Extrem General: normal to inspection Psych Mental Status: mental status grossly normal
--- NOTE | 2021-06-06 12:22 | DI.CT_ITS ---
Exam(s) CT THORAX CTA EXAM: CT THORAX CTA CLINICAL HISTORY: ?dissection. TECHNIQUE: Imaging Protocol: CT angiography of the chest was performed using pulmonary embolus jb col. Multi planar reconstructions were performed. CONTRAST MATERIAL: Intravenous: Omnipaque 350 Contrast volume: 100 cc COMPARISON: No exams were available for comparison FINDINGS: CHEST LUNGS: There is a 6 x 5 millimeter noncalcified nodule in the left upper lobe (series 4/image 17). T here are no other significant focal left lung findings nor pleural effusions. The opposite-right wendy g there are no significant findings. There are no significant focal findings in the trachea and main stem bronchi. There are no pleural effusions. MEDIASTINUM: There is no hilar nor mediastinal adenopathy. Visualized thyroid unremarkable. CARDIAC: Heart size is upper normal. There is no pericardial effusion.Caliber of the thoracic aorta is within normal limits. No evidence of aortic dissection. There is no significant shift of the inte rventricular septum. PARTIALLY VISUALIZED UPPERMOST ABDOMEN: No obvious findings OSSEOUS: No significant osseous lesions.No fractures. IMPRESSION: 1. No evidence of aortic dissection nor pericardial effusion..Heart size is normal. 2. Incidentally noted is a solitary 6 x 5 millimeter noncalcified nodule in the left upper lobe. Cordelia ropriate follow-up recommended. No other focal pulmonary findings nor pleural effusions nor obvious intrathoracic adenopathy. 3. No significant osseous findings in the chest RADIATION DOSE DELIVERED: 622.24mGy.cm Total DLP DATA REPOSITORY: All CT scans at this facility are submitted to the National Radiology Data Registry (NRDR) Dose Index Registry (DIR) with the [employer] (A[employer]). RADIATION OPTIMIZATION: All CT scans at this facility use at least one of these dose optimization te chniques: automated exposure control; mA and/or kV adjustment per patient size (includes targeted exa ms where dose is matched to clinical indication); or iterative reconstruction.
[2021-06-06 12:23] LABS: Abs Immature Grans 0.03 10^3/uL (0.0-0.06); Absolute Basophil Count 0.03 10^3/uL (0.0-0.2); Absolute Eosinophil Count 0.09 10^3/uL (0.0-0.7); Absolute Monocyte Count 0.57 10^3/uL (0.1-0.8); Basophils % 0.4; Eosinophils % 1.2; HCT 43.1 % (40.0-50.0); HGB 14.5 g/dL (13.5-17.5); Immature Grans % 0.4; Lymphocytes % 29.1; MCH 30.3 pg (27.0-33.0); MCHC 33.6 % (32.0-36.0); MCV 90.2 fL (80-95); MPV 9.7 fL (8.0-11.0); Monocytes % 7.9; Nucleated RBC 0 %; Platelet Count 277 10^3/uL (130-400); RBC 4.78 10^6/uL (4.36-5.78); RDW 12.2 % (11.8-14.1); RDW-SD 40.6 fL; WBC 7.22 10^3/uL (4.4-10.8)
[2021-06-06 12:36] LABS: ALT 24 U/L (16-63); AST 12 U/L (15-37); Alkaline Phosphatase 72 U/L (46-116); Anion Gap 6.3 mmol/L (3-11); BUN 14 mg/dL (7-18); Bilirubin, Total 0.3 mg/dL (0.2-1.0); CO2 30.7 mmol/L (21.0-32.0); Calcium 8.9 mg/dL (8.5-10.1); Chloride 101 mmol/L (98-107); Glucose 106 mg/dL (74-106); Lipase 55 U/L (73-393); Potassium 3.7 mmol/L (3.5-5.1); Sodium 138 mmol/L (136-145); Total Protein 7.2 g/dL (6.4-8.2); Troponin I < 50 ng/L (<or=60)
[2021-06-06] MEDS: Omnipaque 350 MG/ML 100 ML BTL IJ (12:54)
[2021-06-06 15:44] LABS: Troponin I < 50 ng/L (<or=60)
--- NOTE | 2021-07-08 08:18 | W.CARDEVENT ---
Date of service: 07/08/21 Time of Service: 08:19 Cardiac Event Recorder Referring Provider:: Hoa Aguirre Indications:: Palpitations Cardiac Event Note: This is a 30-day event monitor reportedly ordered for palpitations. Patient was monitored from June 06, 2021 through July 05, 2021 Predominant rhythm was sinus. Average heart rate was 7 3. Minimum was 85, maximum 109 There was no atrial fibrillation, no high-grade AV block, no pauses greater than 3 seconds Patient symptoms were reported. These were associated with sinus rhythm
== END 2021-06-06 16:57 | disposition home or self-care (01) ==
PROVIDERS: Emergency Provider Emergency Medicine; PCP Nurse Practitioner Family
DX: R07.9 Chest pain, unspecified (principal); R00.2 Palpitations; R91.1 Solitary pulmonary nodule
CPT/HCPCS: 36415; 71275; 80053; 83690; 93005; 93270; 99285; 83735; 84484; 85025; 93010; 99284; J3490

== ENCOUNTER 2021-07-09 01:54 | Outpatient (CLI) | payer OTHER, SELFPAY ==
[2021-07-10 01:44] LABS: COVID-19 RT-PCR UVMMC Result Negative (Negative)
== END 2021-07-09 01:55 | disposition home or self-care (01) ==
LOC: LBO 01:55
PROVIDERS: PCP Nurse Practitioner Family; Visit Provider Nurse Practitioner Family
DX: Z20.822 Contact with and (suspected) exposure to COVID-19 (principal)
CPT/HCPCS: U0003

== ENCOUNTER 2021-07-12 01:28 | Outpatient (CLI) | payer OTHER, SELFPAY ==
[2021-07-13 16:52] LABS: COVID-19 RT-PCR UVMMC Result Negative (Negative)
== END 2021-07-12 01:29 | disposition home or self-care (01) ==
PROVIDERS: PCP Nurse Practitioner Family; Visit Provider Nurse Practitioner Family
DX: Z20.822 Contact with and (suspected) exposure to COVID-19 (principal)
CPT/HCPCS: U0003

== ENCOUNTER 2021-12-26 01:38 | Outpatient (CLI) | payer OTHER, SELFPAY ==
[2021-12-26 20:36] LABS: PSA, Screening 0.4 ng/mL (<=3.5)
== END 2021-12-26 01:39 | disposition home or self-care (01) ==
LOC: LBO 01:38
PROVIDERS: PCP Nurse Practitioner Family; Visit Provider Nurse Practitioner Gerontology
DX: R36.1 Hematospermia (principal); Z12.5 Encounter for screening for malignant neoplasm of prostate
CPT/HCPCS: 36415; 84153

== ENCOUNTER 2022-06-10 13:21 | Outpatient (CLI) | payer OTHER, SELFPAY ==
--- NOTE | 2022-06-10 13:15 | DI.RAD_ITS ---
Exam(s) XR ANKLE LT COMPLETE EXAM: XR ANKLE LT COMPLETE CLINICAL HISTORY: L ankle pain. TECHNIQUE: 2D digital imaging was performed. COMPARISON: CR LEFT ANKLE COMPLETE from 08/04/2014 FINDINGS: 3 views There has been interval removal of the left fibular sideplate and screws with the exception remaining fragments of fracture sys horizontal screw in distal tibial metaphysis. Fracture site in the fibula appears healed. There is no widening of the talar dome. Mild degenerative changes in tibiotalar alexis int are noted. No osseous tarsal coalition. Enthesophyte noted at the insertional aspect of the Ach illes on the posterior calcaneus. There are skin callus is over the heel but no obvious ulcer crater . IMPRESSION: DATA REPOSITORY: RADIATION DOSE DELIVERED:
== END 2022-06-10 13:22 | disposition home or self-care (01) ==
LOC: DIORS 13:22
PROVIDERS: PCP Nurse Practitioner Family; Referring Provider Nurse Practitioner Family; Visit Provider Physician Assistant
DX: M25.572 Pain in left ankle and joints of left foot (principal); M19.072 Primary osteoarthritis, left ankle and foot; M76.62 Achilles tendinitis, left leg; Z87.81 Personal history of (healed) traumatic fracture
CPT/HCPCS: 73610

== ENCOUNTER 2022-07-01 17:54 | Outpatient (REF) | payer OTHER, SELFPAY ==
[2022-07-01 14:15] LABS: Abs Immature Grans 0.05 10^3/uL (0.0-0.06); Absolute Basophil Count 0.04 10^3/uL (0.0-0.2); Absolute Eosinophil Count 0.11 10^3/uL (0.0-0.7); Absolute Lymphocyte Count 1.76 10^3/uL (1.2-3.4); Absolute Monocyte Count 0.81 10^3/uL (0.1-0.8); Absolute Neutrophil Count 7.07 10^3/uL (1.2-6.7); Basophils % 0.4; Eosinophils % 1.1; HCT 43.9 % (40.0-50.0); HGB 14.9 g/dL (13.5-17.5); Immature Grans % 0.5; Lymphocytes % 17.9; MCH 30.7 pg (27.0-33.0); MCHC 33.9 % (32.0-36.0); MCV 90 fL (80-95); MPV 9.8 fL (8.0-11.0); Monocytes % 8.2; Neutrophils % 71.9; Platelet Count 281 10^3/uL (130-400); RBC 4.86 10^6/uL (4.36-5.78); RDW 12.3 % (11.8-14.1); RDW-SD 40.5 fL; WBC 9.84 10^3/uL (4.4-10.8)
[2022-07-01 14:40] LABS: ALT 23 U/L (16-63); AST 14 U/L (15-37); Albumin 4.3 g/dL (3.4-5.0); Alkaline Phosphatase 79 U/L (46-116); Anion Gap 8.5 mmol/L (3-11); BUN 12 mg/dL (7-18); Bilirubin, Total 0.6 mg/dL (0.2-1.0); CO2 30.5 mmol/L (21.0-32.0); Calcium 9.5 mg/dL (8.5-10.1); Chloride 101 mmol/L (98-107); Glucose 112 mg/dL (74-106); Sodium 140 mmol/L (136-145); Total Protein 7.2 g/dL (6.4-8.2)
== END 2022-07-01 17:55 | disposition home or self-care (01) ==
LOC: NCHCN 17:54
PROVIDERS: PCP Nurse Practitioner Family; Visit Provider Family Medicine
DX: R10.9 Unspecified abdominal pain (principal)
CPT/HCPCS: 80053; 85025

== ENCOUNTER 2022-08-26 05:30 | Emergency (ER) | payer OTHER, SELFPAY ==
[2022-08-26 05:34] VITALS: BP 162/89; PULSE 90; RESP 20; TEMP 36.7; O2SAT 99
--- NOTE | 2022-08-26 05:45 | DI.CT_ITS ---
Exam(s) CT ABDOMEN PELVIS W EXAM: CT ABDOMEN PELVIS W CLINICAL HISTORY: LLQ abd pain, r/o diverticulitis TECHNIQUE: Imaging Protocol: Axial computed tomography images with coronal and sagittal reformatted images were created and reviewed CONTRAST MATERIAL: Intravenous: Omnipaque 350 Contrast volume:100 mL Oral: No COMPARISON: CT CT ABDOMEN PELVIS W from 07/02/2022 FINDINGS: ABDOMEN: Lung Bases: Normal where visualized. Liver: Normal density. No measurable mass. Portal, Superior Mesenteric, and Splenic Veins: Unremarkable. Gallbladder and Biliary Tract: No radiodense calculus or dilation. Pancreas: Normal density, no abnormal calcifications or inflammatory process. Spleen: Normal. Adrenals: No masses seen. Kidneys: Normal size, contour and axis. No radiodense stones or obstructive uropathy. No masses seen. Abdominal Aorta: Abdominal portion non-dilated. Bowel: There is diverticulosis of the colon. There is bowel wall thickening and pericolonic inflamma tory changes seen in the junction of the descending colon and sigmoid colon consistent with acute div erticulitis. There is no bowel wall thickening. The remainder of the bowel is unremarkable. No jmaa dence of appendicitis. Peritoneal Cavity: No ascites, collection or mesenteric inflammatory response. No free air. Lymph Nodes: Within normal limits. Bones: Within normal limits for the patient's age. Soft Tissues: There are bilateral fat containing inguinal hernias. PELVIS: Bladder: Symmetric distention, no gross wall thickening. Reproductive Organs: Unremarkable as visualized. Lymph Nodes: Within normal limits. Bones: Within normal limits for the patient's age. IMPRESSION: 1. Findings consistent with diverticulitis at the junction of the descending colon and sigmoid colon. No abscess or free air. 2. Findings were discussed with Dr. Judge at 8:47 a.m. on 08/26/2022. RADIATION DOSE DELIVERED: 1,525.37mGy.cm Total DLP DATA REPOSITORY: All CT scans at this facility are submitted to the National Radiology Data Registry (NRDR) Dose Index Registry (DIR) with the [employer] ([employer]CR). RADIATION OPTIMIZATION: All CT scans at this facility use at least one of these dose optimization te chniques: automated exposure control; mA and/or kV adjustment per patient size (includes targeted exa ms where dose is matched to clinical indication); or iterative reconstruction.
[2022-08-26 06:00] LABS: Abs Immature Grans 0.02 10^3/uL (0.0-0.06); Absolute Basophil Count 0.04 10^3/uL (0.0-0.2); Absolute Eosinophil Count 0.15 10^3/uL (0.0-0.7); Absolute Lymphocyte Count 1.97 10^3/uL (1.2-3.4); Absolute Monocyte Count 0.68 10^3/uL (0.1-0.8); Basophils % 0.4; Eosinophils % 1.6; HCT 47.4 % (40.0-50.0); HGB 16.3 g/dL (13.5-17.5); Immature Grans % 0.2; Lymphocytes % 20.8; MCH 30.5 pg (27.0-33.0); MCHC 34.4 % (32.0-36.0); MCV 89 fL (80-95); MPV 10.4 fL (8.0-11.0); Monocytes % 7.2; Neutrophils % 69.8; Platelet Count 259 10^3/uL (130-400); RBC 5.35 10^6/uL (4.36-5.78); RDW 12.7 % (11.8-14.1); RDW-SD 41.6 fL; WBC 9.46 10^3/uL (4.4-10.8)
[2022-08-26] MEDS: Normal Saline 1,000 ML 1000 ML IV (06:00)
--- NOTE | 2022-08-26 06:07 | W.ED.GENAD ---
Discharge Plan Disposition Patient Disposition: Home Condition: Stable Discharge Details Clinical Impression: Acute diverticulitis Primary Care Provider: Hoa Aguirre ED Provider: Red Judge Home Meds and New Rx's Prescriptions: New ciprofloxacin HCl 500 mg tablet 500 mg PO BID Qty: 14 0RF metronidazole 500 mg tablet 500 mg PO BID 7 Days Qty: 14 0RF Continued cholecalciferol (vitamin D3) 50 mcg (2,000 unit) capsule 50 mcg PO DAILY albuterol sulfate [ProAir HFA] 90 mcg/actuation HFA aerosol inhaler 2 puff inhalation Q6H PRN acetylcysteine [NAC] 600 mg capsule 600 mg PO QID PRN Discharge Instructions Instructions: Diverticulitis (ED), Diverticulitis Diet (ED) Additional Instructions: Please read all of the information that accompanies these instructions. You were seen in the emergency department for your abdominal pain. You were diagnosed with diverticulitis which is an infection and inflammation of your intestines for which you are receiving antibiotics that you should take as directed. Please schedule an appointment with your primary care provider later this week. Please return to the emergency department if if you develop fevers, worsening pain, or any nausea or vomiting that prevents you from taking oral antibiotics. For your pain please take medications as follows: 1. Take acetaminophen (Tylenol), 1,000 mg (two 500 mg tabs) every 6 hours 2. Take ibuprofen (Advil), 400 mg every 6 hours. Discharge Data Discharge Date/Time-TO BE ENTERED AT DEPARTURE: 08/26/22 09:33 Medical Decision Making 0540 -- 52-year-old male with history of obesity,, degenerative joint disease, diverticulitis presents with left sided abdominal pain now worse in the left lower quadrant since yesterday. Blood pressure moderately elevated. Remainder of vitals within normal limits. Patient's abdomen is soft, obese and mostly tender in the left lower quadrant. Suspect most likely diverticulitis. Will obtain screening labs, CT abdomen and pelvis and give a dose of IV Tylenol and IV fluids and reassess. 0725 --labs and imaging reviewed. Normal white blood cell count. CT appears likely consistent with diverticulitis. Final report of CT pending. Patient reassessed and he feels better. He is declining any additional pain medication at this time. 0800 --Case endorsed to Dr. Judge to follow-up on imaging results and final disposition. Medical Records Medical records reviewed: Yes I reviewed the patient's medical records. Lab Data Lab results reviewed: Yes I reviewed the patient's lab results. Labs: Laboratory Tests Range/Units 08/26/22 08/26/22 08/26/22 05:40 05:40 06:50 WBC (4.4-10.8) 10^3/uL 9.46 RBC (4.36-5.78) 10^6/uL 5.35 Hgb (13.5-17.5) g/dL 16.3 Hct (40.0-50.0) % 47.4 MCV (80-95) fL 89 MCH (27.0-33.0) pg 30.5 MCHC (32.0-36.0) % 34.4 RDW (11.8-14.1) % 12.7 Plt Count (130-400) 10^3/uL 259 MPV (8.0-11.0) fL 10.4 Immature Gran % 0.2 Neutrophils % 69.8 Band Neutrophils % [employer] Lymphocytes % 20.8 Atypical Lymphs % [employer] Monocytes % 7.2 Eosinophils % 1.6 Basophils % 0.4 Metamyelocytes % [employer] Myelocytes % [employer] Promyelocytes % [employer] Other Cells % [employer] Nucleated RBC % (0.0-0.3) % 0.0 Absolute Neutrophils (1.2-6.7) 10^3/uL 6.60 Absolute Lymphocytes (1.2-3.4) 10^3/uL 1.97 Absolute Monocytes (0.1-0.8) 10^3/uL 0.68 Absolute Eosinophils (0.0-0.7) 10^3/uL 0.15 Absolute Basophils (0.0-0.2) 10^3/uL 0.04 RBC Morphology [employer] Polychromasia [employer] Hypochromasia [employer] Poikilocytosis [employer] Basophilic Stippling [employer] Anisocytosis [employer] Microcytosis [employer] Macrocytosis [employer] Spherocytes [employer] Tear Drop Cells [employer] Ovalocytes [employer] Stomatocytes [employer] Hand-Hyden Bodies [employer] Stone Cells/Echinocytes [employer] Acanthocytes (Spur) [employer] Schistocytes [employer] Sodium Cancelled 140 Potassium Cancelled 4.0 Chloride Cancelled 106 Carbon Dioxide Cancelled 29.1 Anion Gap Cancelled 4.9 BUN Cancelled 9 Creatinine Cancelled 1.0 Est GFR (CKD-EPI 2020) Cancelled 90.00 Glucose Cancelled 108 H Calcium Cancelled 8.6 Total Bilirubin Cancelled 0.4 AST Cancelled 9 L ALT Cancelled 21 Alkaline Phosphatase Cancelled 66 Total Protein Cancelled 6.2 L Albumin Cancelled 3.4 Lipase Cancelled 20 HPI General Mode of arrival: ambulatory. Date/Time Provider Initiated Documentation: 08/26/22 05:45. Limitations to Documentation: no limitations. Information obtained by: patient. HPI Narrative: Patient is a 52-year-old male with a previous history of diverticulitis a few months ago presents with left-sided abdominal pain since yesterday. Patient states his pain was mild yesterday afternoon but worsened in the last 90 minutes. Patient describes the pain as intermittent, sharp, crampy and achy. He states the pain is currently 5/10. He has not taken any medication for pain. He states the pain is worsened with certain positions, mainly sitting upright. Patient states he was last treated with Cipro and Flagyl a few months ago after referred for outpatient CT which found diverticulitis. He states he ate peas and a sandwich with possibly nuts a few days ago. Patient states he had a smaller than usual bowel movement this morning. Patient denies any fever, nausea, vomiting or urinary symptoms. Related Data Home Medications Medication Instructions Recorded Confirmed albuterol sulfate 90 mcg/actuation 2 puff inhalation Q6H PRN 03/28/20 08/26/22 aerosol inhaler (ProAir HFA) cholecalciferol (vitamin D3) 50 50 mcg PO DAILY 04/26/20 08/26/22 mcg (2,000 unit) capsule acetylcysteine 600 mg capsule (NAC) 600 mg PO QID PRN 04/29/22 08/26/22 ciprofloxacin HCl 500 mg tablet 500 mg PO BID #14 tabs 08/26/22 metronidazole 500 mg tablet 500 mg PO BID 7 days #14 tabs 08/26/22 Previous Rx's Medication Instructions Recorded ciprofloxacin HCl 500 mg tablet 500 mg PO BID #14 tabs 08/26/22 metronidazole 500 mg tablet 500 mg PO BID 7 days #14 tabs 08/26/22 Allergies Allergy/AdvReac Type Severity Reaction Status Date / Time animal dander Allergy Verified 08/26/22 06:00 house dust Allergy Verified 08/26/22 06:00 mold Allergy Verified 08/26/22 06:00 pollen extracts Allergy Verified 08/26/22 06:00 shellfish derived Allergy GI issues Verified 08/26/22 06:00 General Stated Complaint: Abd Prob HANY: 3 Review of Systems All systems reviewed & are unremarkable except as noted in HPI and below Constitutional Constitutional: Reports as per HPI, Denies chills and Denies fever(s) Eyes Eyes: Denies blurry vision ENT Ears, Nose, Mouth, and Throat: Denies dizziness, Denies sore throat and Denies throat swelling Cardiovascular Cardiovascular: Denies chest pain and Denies dyspnea Respiratory Respiratory: Denies cough and Denies dyspnea Gastrointestinal Gastrointestinal: Reports abdominal pain, Denies diarrhea, Reports nausea and Denies vomiting Genitourinary Genitourinary: Denies hematuria and Denies dysuria Musculoskeletal Musculoskeletal: Denies back pain and Denies numbness Integumentary/Breasts Skin/Breast: Denies lesions and Denies rash Neurologic Neurologic: Denies dizziness, Denies localized weakness and Denies numbness Allergic/Immunologic Allergic/Immunologic: Denies throat swelling PFSH All Active Problems (Updated 08/26/22 @ 08:51 by Red Judge MD) Acute diverticulitis (Acute) Osteoarthritis of left ankle (Acute) Painful orthopaedic hardware (Acute) L ankle Diverticula of colon (Acute) Adenomatous colon polyp (Acute) Medical History (Updated 08/26/22 @ 08:51 by Red Judge MD) Actinic keratosis Allergic rhinitis Animal dander allergy Ankle joint pain Back pain, acute Degenerative disc disease Degenerative disc disease, lumbar Degenerative joint disease History of asthma History of head injury Hx of fracture of ankle screws present Mood disorder Nevus Nevus, atypical Obesity Pulmonary nodule Rash Shellfish allergy Skin tag Stress Tinnitus Surgical History (Updated 08/26/22 @ 06:35 by Rachel Martinez DO) History of ankle surgery History of colonoscopy (~05/10/20) Social History Smoking/Tobacco Use Status: Never Smoking risk assessment performed?: Yes Alcohol Intake: current Alcohol Intake frequency: a few times a month Drug use: Never Substance use type: does not use Current gender identity: male Do you feel safe at home: Yes Do you feel safe in your relationship?: Yes Exam Const General: cooperative and no acute distress Nutritional Appearance: obese morbidly obese Orientation: alert, awake and oriented x3 [facility] Head: normal to inspection Face and sinus: normal facial exam Eyes General: appearance normal, both eyes and all related structures Pupils: PERRL EOM: EOM intact bilaterally Neck Neck: normal visual inspection and No submandibular swelling Lymphatic: no lymphadenopathy noted Chest Chest: normal inspection of the chest and no tenderness Resp Effort & Inspection: normal respiratory effort and able to speak in complete sentences Auscultation: clear to auscultation bilaterally Cardio Rate: regular rate Rhythm: regular rhythm GI Inspection: normal to inspection and obesity Palpation: soft, not firm, not rigid and tender in the LLQ (Worse than left upper quadrant) and in the LUQ Auscultation: hypoactive bowel sounds Skin General skin exam: no rashes or lesions noted Neuro General: patient alert, patient awake and patient oriented x3 Cognition: normal cognition Speech: speech normal Motor: muscle tone normal throughout Sensory Exam: no sensory deficits noted Extrem General: normal to inspection, full ROM, capillary refill normal, no calf tenderness bilaterally and no edema Psych Appearance: grossly normal Mental Status: mental status grossly normal Speech and Movement: speech and movement normal Affect: normal affect Course Vital Signs Vital signs: Vital Signs Temperature 98.1 F 08/26/22 05:34 Pulse 90 08/26/22 05:34 Respiratory Rate 20 08/26/22 05:34 Blood Pressure 162/89 H 08/26/22 05:34 Pulse Oximetry 99 08/26/22 05:34 Temperature 98.1 F 08/26/22 05:34 Pulse 90 08/26/22 05:34 Respiratory Rate 20 08/26/22 05:34 Respiratory Effort Normal 08/26/22 05:38 Blood Pressure 162/89 H 08/26/22 05:34 Pulse Oximetry 99 08/26/22 05:34 Oxygen Delivery Method Room Air 08/26/22 05:34 Oxygen Flow Rate 0 08/26/22 05:34 Pain Level 6 08/26/22 05:34 Lab/Test Results Lab/Test Results: Laboratory Tests Range/Units 08/26/22 05:40 WBC (4.4-10.8) 10^3/uL 9.46 RBC (4.36-5.78) 10^6/uL 5.35 Hgb (13.5-17.5) g/dL 16.3 Hct (40.0-50.0) % 47.4 MCV (80-95) fL 89 MCH (27.0-33.0) pg 30.5 MCHC (32.0-36.0) % 34.4 RDW (11.8-14.1) % 12.7 Plt Count (130-400) 10^3/uL 259 MPV (8.0-11.0) fL 10.4 Immature Gran % 0.2 Neutrophils % 69.8 Lymphocytes % 20.8 Monocytes % 7.2 Eosinophils % 1.6 Basophils % 0.4 Nucleated RBC % (0.0-0.3) % 0.0 Absolute Neutrophils (1.2-6.7) 10^3/uL 6.60 Absolute Lymphocytes (1.2-3.4) 10^3/uL 1.97 Absolute Monocytes (0.1-0.8) 10^3/uL 0.68 Absolute Eosinophils (0.0-0.7) 10^3/uL 0.15 Absolute Basophils (0.0-0.2) 10^3/uL 0.04 Sign Out Sign Out Data: Sign Out Comment: History of diverticulitis. Left lower quadrant abdominal pain since yesterday. Follow-up on CT abdomen and pelvis and final disposition. Last updated by Rachel Martinez DO at 08/26/22 07:49
[2022-08-26] MEDS: ACETAMINOPHEN 1,000 MG/100 ML BTL 400 MG IVPB (06:09)
[2022-08-26] MEDS: Omnipaque 350 MG/ML 100 ML BTL IJ (06:10)
[2022-08-26] MEDS: Normal Saline - Diluent 50 ML VIAL IJ (06:11)
[2022-08-26] MEDS: Normal Saline Flush 10 ML SYR IVP (06:14)
[2022-08-26 07:09] LABS: ALT 21 U/L (16-63); AST 9 U/L (15-37); Albumin 3.4 g/dL (3.4-5.0); Alkaline Phosphatase 66 U/L (46-116); Anion Gap 4.9 mmol/L (3-11); BUN 9 mg/dL (7-18); Bilirubin, Total 0.4 mg/dL (0.2-1.0); CO2 29.1 mmol/L (21.0-32.0); Calcium 8.6 mg/dL (8.5-10.1); Chloride 106 mmol/L (98-107); Glucose 108 mg/dL (74-106); Lipase 20 U/L (16-77); Sodium 140 mmol/L (136-145); Total Protein 6.2 g/dL (6.4-8.2)
[2022-08-26 07:37] VITALS: BP 146/81; PULSE 60; RESP 18; TEMP 36.1; O2SAT 99
--- NOTE | 2022-08-26 08:14 | W.EDPROG ---
Date of service: 08/26/22 Time of Service: 08:14 Medical Decision Making I received signout on this 52-year-old male with prior history of diverticulitis now with left lower quadrant pain pending read on CT. If CT shows uncomplicated diverticulitis patient will be appropriate for discharge with outpatient PMD follow-up on ciprofloxacin and metronidazole. We will update documentation following CT. Patient drove himself to the emergency department and received IV acetaminophen. 8:47am I spoke to Dr. Lane from radiology who noted that the patient had uncomplicated diverticulitis with no microperforation or abscess. Will reassess the patient and anticipate discharge with an empiric trial of expectant outpatient management. I met with the patient and explained return indications including any fevers or inability to tolerate his oral antibiotics. I advised outpatient PCP follow-up. Patient was discharged with 7 days of ciprofloxacin and metronidazole. He is not on any QTc prolonging medications. Sign Out Sign Out Data: Sign Out Comment: History of diverticulitis. Left lower quadrant abdominal pain since yesterday. Follow-up on CT abdomen and pelvis and final disposition. Last updated by Rachel Martinez DO at 08/26/22 07:49 Discharge Plan Disposition Patient Disposition: Home Condition: Stable Discharge Details Clinical Impression: Acute diverticulitis Primary Care Provider: Hoa Aguirre ED Provider: Red Judge [place] Meds and New Rx's Prescriptions: New ciprofloxacin HCl 500 mg tablet 500 mg PO BID Qty: 14 0RF metronidazole 500 mg tablet 500 mg PO BID 7 Days Qty: 14 0RF Continued cholecalciferol (vitamin D3) 50 mcg (2,000 unit) capsule 50 mcg PO DAILY albuterol sulfate [ProAir HFA] 90 mcg/actuation HFA aerosol inhaler 2 puff inhalation Q6H PRN acetylcysteine [NAC] 600 mg capsule 600 mg PO QID PRN Discharge Instructions Instructions: Diverticulitis (ED), Diverticulitis Diet (ED) Additional Instructions: Please read all of the information that accompanies these instructions. You were seen in the emergency department for your abdominal pain. You were diagnosed with diverticulitis which is an infection and inflammation of your intestines for which you are receiving antibiotics that you should take as directed. Please schedule an appointment with your primary care provider later this week. Please return to the emergency department if if you develop fevers, worsening pain, or any nausea or vomiting that prevents you from taking oral antibiotics. For your pain please take medications as follows: 1. Take acetaminophen (Tylenol), 1,000 mg (two 500 mg tabs) every 6 hours 2. Take ibuprofen (Advil), 400 mg every 6 hours.
[2022-08-26] MEDS: metroNIDAZOLE 500 MG TAB PO (09:23)
[2022-08-26] MEDS: Ciprofloxacin 500 MG TAB PO (09:23)
[2022-08-26 09:31] VITALS: BP 138/82; PULSE 71; TEMP 36.7; O2SAT 98
== END 2022-08-26 09:33 | disposition home or self-care (01) ==
PROVIDERS: Physician Assistant; Emergency Provider Emergency Medicine; PCP Nurse Practitioner Family
DX: K57.92 Diverticulitis of intestine, part unspecified, without perforation or abscess without bleeding (principal); J45.909 Unspecified asthma, uncomplicated; E66.01 Morbid (severe) obesity due to excess calories
CPT/HCPCS: 80053; 83690; 96361; 96365; 99285; 74177; 85025; 99284; J0131; J3490

== ENCOUNTER 2023-01-16 19:52 | Emergency (ER) | payer OTHER, SELFPAY ==
[2023-01-16 19:57] VITALS: BP 151/79; PULSE 111; RESP 18; TEMP 37.3; O2SAT 97
[2023-01-16 21:01] LABS: Abs Immature Grans 0.04 10^3/uL (0.0-0.06); Absolute Eosinophil Count 0.11 10^3/uL (0.0-0.7); Absolute Lymphocyte Count 1.78 10^3/uL (1.2-3.4); Absolute Monocyte Count 0.71 10^3/uL (0.1-0.8); Absolute Neutrophil Count 9.04 10^3/uL (1.2-6.7); Basophils % 0.3; Eosinophils % 0.9; HCT 43.1 % (40.0-50.0); HGB 14.9 g/dL (13.5-17.5); Immature Grans % 0.3; Lymphocytes % 15.2; MCH 30.5 pg (27.0-33.0); MCHC 34.6 % (32.0-36.0); MCV 88 fL (80-95); MPV 9.5 fL (8.0-11.0); Monocytes % 6.1; Neutrophils % 77.2; Platelet Count 262 10^3/uL (130-400); RBC 4.88 10^6/uL (4.36-5.78); RDW 12.5 % (11.8-14.1); RDW-SD 40.7 fL; WBC 11.71 10^3/uL (4.4-10.8)
[2023-01-16 21:03] LABS: Absolute Basophil Count 0.04 10^3/uL (0.0-0.2)
[2023-01-16] MEDS: Ketorolac 30 MG/ML VIAL IVP (21:05)
[2023-01-16] MEDS: Normal Saline 1,000 ML 1000 ML IV (21:05)
[2023-01-16 21:12] LABS: Lipase 26 U/L (16-77)
[2023-01-16 21:16] LABS: ALT 19 U/L (16-63); AST 9 U/L (15-37); Albumin 3.8 g/dL (3.4-5.0); Alkaline Phosphatase 75 U/L (46-116); Anion Gap 10.5 mmol/L (3-11); BUN 13 mg/dL (7-18); Bilirubin, Total 0.4 mg/dL (0.2-1.0); CO2 28.5 mmol/L (21.0-32.0); CREATININE 1.1 mg/dL (0.70-1.30); Calcium 9.1 mg/dL (8.5-10.1); Chloride 100 mmol/L (98-107); Estimated GFR 80.27 (mL/min/1.73m2); Glucose 139 mg/dL (74-106); Potassium 3.7 mmol/L (3.5-5.1); Sodium 139 mmol/L (136-145); Total Protein 6.9 g/dL (6.4-8.2)
--- NOTE | 2023-01-16 21:16 | ED.GENADUL_ITS ---
Discharge Plan Disposition Patient Disposition: Home Condition: Stable Discharge Details Clinical Impression: Diverticulitis Primary Care Provider: Hoa Aguirre ED Provider: Angela Benson Home Meds and New Rx's Prescriptions: New metronidazole 500 mg tablet 500 mg PO Q8H Qty: 30 0RF Continued cholecalciferol (vitamin D3) 50 mcg (2,000 unit) capsule 50 mcg PO DAILY albuterol sulfate [ProAir HFA] 90 mcg/actuation HFA aerosol inhaler 2 puff inhalation Q6H PRN acetylcysteine [NAC] 600 mg capsule 600 mg PO QID PRN flaxseed oil 1,000 mg Capsule 500 mg PO DAILY ciprofloxacin HCl 500 mg tablet 500 mg PO BID Qty: 20 0RF Discharge Instructions Instructions: Diverticulitis (ED) Additional Instructions: eat a lot of fiber?after?your symptoms have gotten better. Good sources of fiber include fruits, oats, beans, peas, and green leafy vegetables. You do?not?need to avoid seeds, nuts, popcorn, or other similar foods. Referrals: Hoa Aguirre [Primary Care Provider] - Discharge Data Discharge Date/Time-TO BE ENTERED AT DEPARTURE: 01/16/23 22:29 Medical Decision Making This is a 52-year-old male patient with a history of diverticulitis who presents with similar symptoms last episode in August 2022 where he did have imaging. He was treated outpatient with Cipro and Flagyl and did responded. He does tell me that his course needed to be increased to 10 days. He said that was a second bout of diverticulitis. Hemodynamically he is stable and his abdominal exam is essentially unremarkable he does have tenderness in that left lower quadrant but there is no guarding no rebound no acute abdomen. He has no fever. Did discuss imaging with him and using shared decision making he agrees to hold off on CAT scan at this point. I will check basic lab and if essentially unremarkable will treat him with Cipro and Flagyl once again with referral to general surgery outpatient Medical Records Medical records reviewed: Yes I reviewed the patient's medical records. Medical records narrative: Reviewed imaging from his last episode of diverticulitis which did demonstrate no evidence of abscess or other complication. Lab Data Lab results reviewed: Yes I reviewed the patient's lab results. HPI General Mode of arrival: ambulatory . Date/Time Provider Initiated Documentation: 01/16/23 20:00 . Limitations to Documentation: no limitations . Information obtained by: patient . HPI Narrative: This is a 52-year-old male patient with a history of diverticulitis who presents with left lower abdominal pain consistent with previous episodes. He has not had any vomiting he had mild nausea but states that that has resolved he feels very fatigued which is different than last time. He has not had diarrhea or he has had soft bowel movements no blood apparent. He is afebrile hemodynamically stable no other complaints Related Data Home Medications Medication Instructions Recorded Confirmed albuterol sulfate 90 mcg/actuation 2 puff inhalation Q6H PRN 03/28/20 01/16/23 aerosol inhaler (ProAir HFA) cholecalciferol (vitamin D3) 50 50 mcg PO DAILY 04/26/20 01/16/23 mcg (2,000 unit) capsule acetylcysteine 600 mg capsule (NAC) 600 mg PO QID PRN 04/29/22 01/16/23 ciprofloxacin HCl 500 mg tablet 500 mg PO BID #20 tabs 01/16/23 flaxseed oil 1,000 mg capsule 500 mg PO DAILY 01/16/23 01/16/23 metronidazole 500 mg tablet 500 mg PO Q8H #30 tabs 01/16/23 Previous Rx's Medication Instructions Recorded ciprofloxacin HCl 500 mg tablet 500 mg PO BID #20 tabs 01/16/23 metronidazole 500 mg tablet 500 mg PO Q8H #30 tabs 01/16/23 Allergies Allergy/AdvReac Type Severity Reaction Status Date / Time animal dander Allergy Verified 01/16/23 20:01 house dust Allergy Verified 01/16/23 20:01 mold Allergy Verified 01/16/23 20:01 pollen extracts Allergy Verified 01/16/23 20:01 shellfish derived Allergy GI issues Verified 01/16/23 20:01 COVID-19 (SARS-CoV-2) AdvReac Other (See Unverified 01/16/23 20:02 vaccine, hazel Comment) General Stated Complaint: Abd Prob HANY: 3 Review of Systems All systems reviewed & are unremarkable except as noted in HPI and below PFSH All Active Problems (Updated 01/16/23 @ 21:21 by Angela Benson NP) Diverticulitis (Chronic) Osteoarthritis of left ankle (Acute) Painful orthopaedic hardware (Acute) L ankle Diverticula of colon (Acute) Adenomatous colon polyp (Acute) Medical History (Updated 01/16/23 @ 21:21 by Angeal Benson NP) Actinic keratosis Allergic rhinitis Animal dander allergy Ankle joint pain Back pain, acute Degenerative disc disease Degenerative disc disease, lumbar Degenerative joint disease History of asthma History of head injury Hx of fracture of ankle screws present Mood disorder Nevus Nevus, atypical Obesity Pulmonary nodule Rash Shellfish allergy Skin tag Stress Tinnitus Surgical History (Updated 08/26/22 @ 06:35 by Rachel Martinez DO) History of ankle surgery History of colonoscopy (~05/10/20) Social History Smoking/Tobacco Use Status: Never Smoking risk assessment performed?: Yes Alcohol Intake: current Alcohol Intake frequency: a few times a month Drug use: Never Substance use type: does not use Current gender identity: male Do you feel safe at home: Yes Do you feel safe in your relationship?: Yes Exam Const General: cooperative and no acute distress Nutritional Appearance: obese Orientation: alert, awake and oriented x3 [facility] Head: normal to inspection, normocephalic and atraumatic Mouth: oral mucosae normal Neck Neck: normal visual inspection, full ROM and no JVD Chest Chest: normal inspection of the chest Resp Effort & Inspection: normal respiratory effort Auscultation: clear to auscultation bilaterally Cardio Rate: regular rate Rhythm: regular rhythm GI Inspection: normal to inspection and obesity Palpation: no masses and tender in the LLQ; with no rebound tenderness Skin General skin exam: no rashes or lesions noted Neuro General: patient alert, patient awake and patient oriented x3 Cognition: normal cognition Speech: speech normal Gait: normal gait Extrem General: normal to inspection, full ROM and no pedal edema Course Vital Signs Vital signs: Vital Signs Temperature 37.3 C 01/16/23 19:57 Pulse 111 H 01/16/23 19:57 Respiratory Rate 18 01/16/23 19:57 Blood Pressure 151/79 H 01/16/23 19:57 Pulse Oximetry 97 01/16/23 19:57 Temperature 37.3 C 01/16/23 19:57 Temperature Source Oral 01/16/23 19:57 Pulse 111 H 01/16/23 19:57 Respiratory Rate 18 01/16/23 19:57 Respiratory Effort Normal 01/16/23 21:02 Blood Pressure 151/79 H 01/16/23 19:57 Blood Pressure Position Sitting 01/16/23 19:57 Pulse Oximetry 97 01/16/23 19:57 Oxygen Delivery Method Room Air 01/16/23 19:57 Oxygen Flow Rate 0 01/16/23 19:57 Pain Level 5 01/16/23 19:57 Lab/Test Results Lab/Test Results: Laboratory Tests Range/Units 01/16/23 01/16/23 20:45 20:45 WBC (4.4-10.8) 10^3/uL 11.71 H RBC (4.36-5.78) 10^6/uL 4.88 Hgb (13.5-17.5) g/dL 14.9 Hct (40.0-50.0) % 43.1 MCV (80-95) fL 88 MCH (27.0-33.0) pg 30.5 MCHC (32.0-36.0) % 34.6 RDW (11.8-14.1) % 12.5 Plt Count (130-400) 10^3/uL 262 MPV (8.0-11.0) fL 9.5 Immature Gran % 0.3 Neutrophils % 77.2 Lymphocytes % 15.2 Monocytes % 6.1 Eosinophils % 0.9 Basophils % 0.3 Nucleated RBC % (0.0-0.3) % 0.0 Absolute Neutrophils (1.2-6.7) 10^3/uL 9.04 H Absolute Lymphocytes (1.2-3.4) 10^3/uL 1.78 Absolute Monocytes (0.1-0.8) 10^3/uL 0.71 Absolute Eosinophils (0.0-0.7) 10^3/uL 0.11 Absolute Basophils (0.0-0.2) 10^3/uL 0.04 Lipase (16-77) U/L 26
[2023-01-16] MEDS: Ciprofloxacin 500 MG TAB PO (22:16)
[2023-01-16] MEDS: metroNIDAZOLE 500 MG TAB, 3 TABS/BTL PO (22:16)
[2023-01-16] MEDS: metroNIDAZOLE 500 MG TAB PO (22:16)
== END 2023-01-16 22:29 | disposition home or self-care (01) ==
PROVIDERS: Emergency Provider Nurse Practitioner Acute Care; PCP Nurse Practitioner Family
DX: R10.32 Left lower quadrant pain (principal); K57.32 Diverticulitis of large intestine without perforation or abscess without bleeding
CPT/HCPCS: 80053; 83690; 96374; 99283; 85025; 99282; J1885

== ENCOUNTER 2023-05-30 21:14 | Inpatient (IN) | payer OTHER, SELFPAY ==
[2023-05-30] VITALS (22 sets, daily range): BP systolic 143–179; BP diastolic 66–94; PULSE 73–109; RESP 8–32; TEMP 37.1; O2SAT 98
--- NOTE | 2023-05-30 21:15 | DI.CT_ITS ---
Exam(s) CT ABDOMEN PELVIS W EXAM: CT ABDOMEN PELVIS W CLINICAL HISTORY: right upper abd pain, nausea; hx diverticulitis. TECHNIQUE: Imaging Protocol: Axial computed tomography images with coronal and sagittal reformatted images were created and reviewed CONTRAST MATERIAL: Intravenous: Omnipaque-350 100cc Oral: None COMPARISON: CT CT ABDOMEN PELVIS W from 08/26/2022 FINDINGS: VISUALIZED LUNG BASES: No nodules nor pleural effusions evident. ABDOMEN: There is no ascites. LIVER: There are no focal hepatic lesions evident. No dilated intrahepatic ducts. GALLBLADDER/BILIARY: The gallbladder is abnormal. There are no calcified gallstones seen in the gall bladder lumen but there is gallbladder wall edema and pericholecystic fluid consistent with acute cho lecystitis. There is no obvious dilatation of the CBD. No radiopaque calculus noted in the CBD. Ho wever, there is a tiny calcific density in the duodenum at this level measuring 1-2 millimeters. In addition, there are 3 small calcific densities on the dependent wall of the duodenum just proximal to the ligament of Treitz. There is possibly these are also recently passed gallstones. However, ther e were no radiopaque gallstones in the gallbladder lumen on their August [address] CT study. PANCREAS: No evidence of pancreatic mass nor dilatation of the pancreatic duct. No CT evidence of pa ncreatitis. SPLEEN: Spleen is not enlarged. No obvious intrasplenic lesions. Splenic and portal veins are paten t. ADRENALS: There are no significant adrenal masses. KIDNEYS:No cysts evident. No solid renal masses. No calculi nor hydronephrosis.. ABDOMINAL AORTA: Abdominal aorta is not enlarged. LYMPH NODES:There is no retroperitoneal nor paraaortic adenopathy. ABDOMINAL WALL: No evidence of significant anterior abdominal wall hernia. However, there are bilate ral fat containing inguinal hernias, left slightly larger than right. No bowel loops therein. GI: There is no evidence of bowel obstruction, free air, nor abscess. PELVIS: GI: No evidence of appendicitis.No evidence of sigmoid diverticulitis.Previously present diverticulit is at the junction of descending colon and sigmoid has resolved. There is presently no evidence of a cute diverticulitis. LYMPH NODES: There is no intrapelvic nor inguinal adenopathy. REPRODUCTIVE: Prostate size normal. Seminal vesicles unremarkable. URINARY BLADDER: No calculi nor obvious masses evident OSSEOUS: No fractures and no significant osseous lesions. IMPRESSION: 1. Findings are consistent with acute cholecystitis. The gallbladder is distended and there is gallb ladder wall edema and pericholecystic fluid. Possible acalculous cholecystitis given that there are no radiopaque gallstones in the gallbladder and CBD. However, there are radiopaque densities in the duodenum distal to the CBD insertion and these may represent recently passed gallstones. However, th ere were no radiopaque calculi in the gallbladder lumen on the CT scan of 08/26/2022. Therefore thes e may represent ingested pill particles at this level in the duodenum. 2. There is no CT evidence of acute pancreatitis. RADIATION DOSE DELIVERED: Total DLP DATA REPOSITORY: All CT scans at this facility are submitted to the National Radiology Data Registry (NRDR) Dose Index Registry (DIR) with the [employer] (ACR). RADIATION OPTIMIZATION: All CT scans at this facility use at least one of these dose optimization te chniques: automated exposure control; mA and/or kV adjustment per patient size (includes targeted exa ms where dose is matched to clinical indication); or iterative reconstruction.
--- NOTE | 2023-05-30 21:30 | RT.EKG_ITS ---
APPROVED REPORT Exam: Resting ECG Reason for Exam: epigastric pain HTN nausea Patient Location: E HR:78 bpm ECG Measurements Heart Rate 78 AXIS IA 156 P 59 QRSd 90 QRS 19 QT 350 T 4 QTc 399 Conclusion Sinus rhythm...normal P axis, V-rate 60- 99 Low voltage, precordial leads...precordial leads <1.0mV sinus rhythm, normal axis, normal intervals, non ischemic
--- NOTE | 2023-05-30 21:34 | W.ED.GENAD ---
Discharge Plan Disposition Patient Disposition: Admit to [facility] Condition: Stable Discharge Details Chief Complaint: Abd Prob Clinical Impression: Acute cholecystitis Primary Care Provider: Hoa Aguirre ED Provider: Dominguez Blood Home Meds and New Rx's Prescriptions: No Action cholecalciferol (vitamin D3) 50 mcg (2,000 unit) capsule 50 mcg PO DAILY albuterol sulfate [ProAir HFA] 90 mcg/actuation HFA aerosol inhaler 2 puff inhalation Q6H PRN acetylcysteine [NAC] 600 mg capsule 600 mg PO QID PRN flaxseed oil 1,000 mg Capsule 500 mg PO DAILY metformin 500 mg tablet extended release 24 hr 500 mg PO BID Medical Decision Making 53 yr old male hx of diverticulitis presents with RUQ and epigastric; abdominal pain the the last day, associated with one episode of vomiting; afebrile non toxic, however mildly tachycardic on arrival, with involuntary guarding of RUQ; consider biliary colic v cholecystitis v choledocholithiasis v gastritis v enteritis v less likely ACS or aortic pathology v must consider atypical colitis or diverticulitis; screening labs, imaging, analgesia antiemetics; close reassessment 12:04 evidence of acute cholecystitis; patient has been NPO since 6PM; resting more comfortably after meds; spoke with Dr. Jean general surgery who will admit patient for further treatment HPI General Date/Time Provider Initiated Documentation: 05/30/23 21:19. HPI Narrative: 53-year-old male history of recurrent diverticulitis denies history of abdominal surgery presents with upper abdominal discomfort epigastric and right upper quadrant in nature associate with nausea 1 episode of vomiting. Denies diarrhea or constipation. Related Data Home Medications Medication Instructions Recorded Confirmed albuterol sulfate 90 mcg/actuation 2 puff inhalation Q6H PRN 03/28/20 05/30/23 aerosol inhaler (ProAir HFA) cholecalciferol (vitamin D3) 50 50 mcg PO DAILY 04/26/20 05/30/23 mcg (2,000 unit) capsule acetylcysteine 600 mg capsule (NAC) 600 mg PO QID PRN 04/29/22 05/30/23 flaxseed oil 1,000 mg capsule 500 mg PO DAILY 01/16/23 05/30/23 metformin 500 mg tablet,extended 500 mg PO BID 05/30/23 05/30/23 release 24 hr Allergies Allergy/AdvReac Type Severity Reaction Status Date / Time animal dander Allergy Verified 05/30/23 21:31 house dust Allergy Verified 05/30/23 21:31 mold Allergy Verified 05/30/23 21:31 pollen extracts Allergy Verified 05/30/23 21:31 shellfish derived Allergy GI issues Verified 05/30/23 21:31 COVID-19 (SARS-CoV-2) AdvReac Other (See Unverified 05/30/23 21:31 vaccine, hazel Comment) General Stated Complaint: Abd Prob HANY: 3 Review of Systems Narrative: Review of Systems Constitutional: negative Eyes: negative ENT: negative Cardiovascular: negative Respiratory: negative Gastrointestinal: Abdominal pain : negative Musculoskeletal: negative Skin: negative Neurologic: negative Psych: negative PFSH All Active Problems (Updated 05/31/23 @ 00:06 by Dominguez Blood MD) Acute cholecystitis (Acute) Osteoarthritis of left ankle (Acute) Painful orthopaedic hardware (Acute) L ankle Diverticula of colon (Acute) Adenomatous colon polyp (Acute) Medical History (Updated 05/31/23 @ 00:06 by Dominguez Blood MD) Tinnitus Degenerative joint disease Degenerative disc disease Ankle joint pain Nevus Actinic keratosis Pulmonary nodule Stress History of asthma Hx of fracture of ankle screws present Degenerative disc disease, lumbar Allergic rhinitis Obesity Mood disorder Shellfish allergy Animal dander allergy History of head injury Rash Back pain, acute Nevus, atypical Skin tag Surgical History (Updated 08/26/22 @ 06:35 by Rachel Martinez DO) History of ankle surgery History of colonoscopy (~05/10/20) Social History Smoking/Tobacco Use Status: Never Smoking risk assessment performed?: Yes Alcohol Intake: current Alcohol Intake frequency: a few times a month Drug use: Never Substance use type: does not use Current gender identity: male Do you feel safe at home: Yes Do you feel safe in your relationship?: Yes Exam Narrative Exam Narrative: Physical Examination General: alert, awake, cooperative, resting comfortably, no acute distress HEENT: normocephalic, atraumatic; PERRL, EOM intact, conjunctiva normal; no nasal discharge; moist mucous membranes, oral and pharyngeal mucosa normal, tolerating secretions Neck: supple, trachea midline; full ROM Chest: normal to inspection Respiratory: normal respiratory effort, speaking in full sentences, clear to auscultation, no wheezing, rales or rhonchi Cardiac: regular rate, regular rhythm, S1S2 intact, no murmurs rubs or gallops GI: Tender right upper quadrant with involuntary guarding Skin: no lesions, rashes or trauma appreciated Neuro: AAOx3, normal speech, moving all extremities Psych: Appropriate mood and affect Course Vital Signs Vital signs: Vital Signs Temperature 37.1 C 05/30/23 21:18 Pulse 109 H 05/30/23 21:18 Respiratory Rate 16 05/30/23 21:18 Blood Pressure 145/94 H 05/30/23 21:18 Pulse Oximetry 98 05/30/23 21:18 Temperature 37.1 C 05/30/23 21:28 Temperature Source Oral 05/30/23 21:28 Pulse 109 H 05/30/23 21:28 Respiratory Rate 16 05/30/23 21:28 Respiratory Effort Normal, Non-Labored 05/30/23 21:27 Blood Pressure 145/94 H 05/30/23 21:28 Blood Pressure Position Supine 05/30/23 21:28 Pulse Oximetry 98 05/30/23 21:28 Oxygen Delivery Method Room Air 05/30/23 21:28 Oxygen Flow Rate 0 05/30/23 21:18 Pain Level 8 05/30/23 21:28
[2023-05-30] MEDS: Famotidine 20 MG/2 ML VIAL IVP (21:36)
[2023-05-30] MEDS: MORPHine 4 MG/ML SYR 2 MG IVP (21:37)
[2023-05-30] MEDS: Ondansetron 4 MG/2 ML VIAL IVP (21:37)
[2023-05-30] MEDS: Normal Saline 1,000 ML 1000 ML IV (21:37)
[2023-05-30 21:40] LABS: Abs Immature Grans 0.06 10^3/uL (0.0-0.06); Absolute Basophil Count 0.04 10^3/uL (0.0-0.2); Absolute Eosinophil Count 0.01 10^3/uL (0.0-0.7); Absolute Lymphocyte Count 1.32 10^3/uL (1.2-3.4); Basophils % 0.3; Eosinophils % 0.1; HCT 42.6 % (40.0-50.0); HGB 14.9 g/dL (13.5-17.5); Immature Grans % 0.4; MCH 30.4 pg (27.0-33.0); MCV 87 fL (80-95); MPV 9.3 fL (8.0-11.0); Monocytes % 7.5; Neutrophils % 82.7; Platelet Count 280 10^3/uL (130-400); RDW 12.5 % (11.8-14.1); RDW-SD 39.8 fL; WBC 14.63 10^3/uL (4.4-10.8)
[2023-05-30 22:07] LABS: ALT 22 U/L (16-63); AST 11 U/L (15-37); Albumin 3.9 g/dL (3.4-5.0); Alkaline Phosphatase 64 U/L (46-116); Anion Gap 11.8 mmol/L (3-11); BUN 11 mg/dL (7-18); Bilirubin, Total 0.7 mg/dL (0.2-1.0); CO2 26.2 mmol/L (21.0-32.0); Calcium 9.2 mg/dL (8.5-10.1); Chloride 97 mmol/L (98-107); Estimated GFR 89.44 (mL/min/1.73m2); Glucose 137 mg/dL (74-106); Lipase 21 U/L (16-77); Potassium 3.8 mmol/L (3.5-5.1); Sodium 135 mmol/L (136-145); Total Protein 7.2 g/dL (6.4-8.2)
[2023-05-30] MEDS: Normal Saline - Diluent 50 ML VIAL IJ (22:28)
[2023-05-30] MEDS: Omnipaque 350 MG/ML 100 ML BTL IJ (22:29)
[2023-05-30 22:37] LABS: Bilirubin Negative (Negative); Blood Trace-intact (Negative); Clarity Clear (Clear); Glucose Negative (Negative); Ketones Negative (Negative); Leukocyte Esterase Negative (Negative); Nitrite Negative (Negative); Urobilinogen 0.2 mg/dL (Up to 0.2)
[2023-05-30 22:40] LABS: Bacteria Rare HPF (Negative); C & S Indicated? No; Casts Negative LPF (Negative); Crystals Negative HPF (Negative); Epithelial Cells Negative HPF (Negative); Mucus Moderate (Negative); WBC Negative HPF (0-5)
[2023-05-30] MEDS: Ketorolac 15 MG/ML VIAL IVP (23:13)
--- NOTE | 2023-05-30 23:58 | DI.VRAD_ITS ---
PROCEDURE INFORMATION: Exam: CT Abdomen And Pelvis With Contrast Exam date and time: 05/30/2023 10:32 PM Age: 53 years old Clinical indication: Nausea and other: Right upper abd pain; HX diverticulitis; Abdominal pain; Localized; Right upper quadrant (ruq); Patient HX: Right upper abd pain, nausea; HX diverticulitis TECHNIQUE: Imaging protocol: Computed tomography of the abdomen and pelvis with contrast. Contrast material: OMNIPAQUE 350; Contrast volume: 100 ml; Contrast route: INTRAVENOUS (IV); COMPARISON: CT ABDOMEN PELVIS W 08/26/2022 6:25 AM FINDINGS: Liver: Normal. No mass. Gallbladder and bile ducts: Acute cholecystitis: Gallbladder is distended, the wall is mildly thickened, and there is diffuse pericholecystic inflammation and small volume pericholecystic fluid. No biliary ductal dilatation. Pancreas: Unremarkable. Spleen: Normal. Adrenal glands: Normal. No mass. Kidneys and ureters: Normal. No hydronephrosis. Stomach and bowel: Colonic diverticulosis. No diverticulitis. Appendix: Normal appendix. Intraperitoneal space: Unremarkable. No pneumoperitoneum. No abscess. Vasculature: Unremarkable. Lymph nodes: Unremarkable. Urinary bladder: Unremarkable as visualized. Reproductive: Unremarkable as visualized. Bones/joints: Unremarkable. No acute fracture. Soft tissues: Bilateral fat containing inguinal hernias. IMPRESSION: Acute cholecystitis: Gallbladder is distended, the wall is mildly thickened, and there is diffuse pericholecystic inflammation and small volume pericholecystic fluid. Dictated and Authenticated by: Rosendo Delarosa MD. Ordering:CONNIE Mix MD
[2023-05-31] VITALS (29 sets, daily range): BP systolic 102–132; BP diastolic 58–77; PULSE 58–92; RESP 9–19; TEMP 36–37.5; O2SAT 91–98; BMI 40.5
[2023-05-31] MEDS: PIPERACILLIN/TAZO 3.375 GM in Normal Saline 50 ML IVPB ×5 (00:09→22:23)
[2023-05-31] MEDS: ACETAMINOPHEN 1,000 MG/100 ML BTL 400 MG IVPB ×4 (01:54→19:41)
[2023-05-31] MEDS: Normal Saline 1,000 ML 100 ML IV ×2 (01:54→16:17)
[2023-05-31] MEDS: MORPHine 2 MG/ML SYR IVP ×2 (05:31→07:02)
[2023-05-31] MEDS: Normal Saline Flush 10 ML SYR IVP ×3 (05:32→19:41)
[2023-05-31 07:10] LABS: ALT 17 U/L (16-63); AST 7 U/L (15-37); Albumin 3.2 g/dL (3.4-5.0); Alkaline Phosphatase 53 U/L (46-116); Anion Gap 7.9 mmol/L (3-11); BUN 14 mg/dL (7-18); Bilirubin, Total 0.8 mg/dL (0.2-1.0); CO2 29.1 mmol/L (21.0-32.0); Calcium 8.4 mg/dL (8.5-10.1); Chloride 102 mmol/L (98-107); Estimated GFR 89.44 (mL/min/1.73m2); Glucose 118 mg/dL (74-106); Potassium 3.9 mmol/L (3.5-5.1); Sodium 139 mmol/L (136-145)
--- NOTE | 2023-05-31 08:49 | ANES.PREOP_ITS ---
General Info Date of Service Date Performed: 05/31/23 Height: 5 ft 10 in Weight: 128.049 kg Body Mass Index (BMI): 40.5 Surgical Procedure: Operation Date: 05/31/23 09:30 Proposed Procedure Side Surgeon p Cholecystectomy Laparoscopic Carmen Jean, DO Meds Allergies and Home Medications Allergies Allergy/AdvReac Type Severity Reaction Status Date / Time animal dander Allergy Verified 05/30/23 21:31 house dust Allergy Verified 05/30/23 21:31 mold Allergy Verified 05/30/23 21:31 pollen extracts Allergy Verified 05/30/23 21:31 shellfish derived Allergy GI issues Verified 05/30/23 21:31 COVID-19 (SARS-CoV-2) AdvReac Other (See Unverified 05/30/23 21:31 vaccine, hazel Comment) Home Medication Medication Instructions Recorded albuterol sulfate 90 mcg/actuation 2 puff inhalation Q6H PRN 03/28/20 aerosol inhaler (ProAir HFA) cholecalciferol (vitamin D3) 50 50 mcg PO DAILY 04/26/20 mcg (2,000 unit) capsule acetylcysteine 600 mg capsule (NAC) 600 mg PO QID PRN 04/29/22 flaxseed oil 1,000 mg capsule 500 mg PO DAILY 01/16/23 metformin 500 mg tablet,extended 500 mg PO BID 05/30/23 release 24 hr Current Visit Medications: Current Medications Generic Name Dose Route Start Last Admin Trade Name Freq PRN Reason Stop Dose Admin Acetylcysteine 600 mg 05/31/23 00:33 Acetylcysteine 600 Mg Cap PO QID PRN PRN Albuterol Sulfate 2 puff 05/31/23 00:33 Albuterol Hfa 8 Gm 60 Puff Inh IH Q6H PRN PRN Device 1 each 05/31/23 01:00 Inhaler, Assist Device MC DIRECTED ISAIAH Dextrose 0 gm 05/31/23 00:35 Glucose Oral Gel 15 Gm/37.5 Gm Tube PO DIRECTED PRN Dextrose/Water 0 gm 05/31/23 00:35 Dextrose 50%-Water 25 Gm/50 Ml Syr IVP DIRECTED PRN Sodium Chloride 1,000 mls @ 100 mls/hr 05/31/23 00:30 05/31/23 01:54 Saline 1000ml Bag IV 100 mls/hr INFUSION ISAIAH Administration Piperacillin Sod/Tazobactam 50 mls @ 100 mls/hr 05/31/23 06:00 05/31/23 06:24 Sod 3.375 gm/ Sodium Chloride IVPB Infused Q6H ISAIAH Infusion Acetaminophen 1,000 mg in 100 mls @ 400 mls/hr 05/31/23 02:00 05/31/23 07:25 Ofirmev IVPB 400 mls/hr Q6H ISAIAH Administration IV Miscellaneous Supplies 1 each 05/31/23 00:30 Iv Access IV DIRECTED ISAIAH Insulin Aspart 0 units 05/31/23 08:00 05/31/23 08:31 Insulin Aspart 300 Units/3 Ml Pen SC Not Given 0800,1200,1700 [facility] Protocol Iohexol 100 ml 05/30/23 22:30 05/30/23 22:29 Omnipaque 350 Mg/Ml 100 Ml Btl IJ 06/29/23 23:59 100 ml DIRECTED ISAIAH Administration Morphine Sulfate 2 mg 05/31/23 00:29 05/31/23 07:02 Morphine 2 Mg/Ml Syr IVP 2 mg Q1H PRN PRN Administration Ondansetron HCl 4 mg 05/31/23 00:29 Ondansetron 4 Mg/2 Ml Vial IVP Q4H PRN PRN Sodium Chloride 50 ml 05/30/23 22:30 05/30/23 22:28 Normal Saline - Diluent 50 Ml Vial IJ 50 ml .FOR DI USE ISAIAH Administration Sodium Chloride 0 ml 05/31/23 00:29 05/31/23 07:02 Normal Saline Flush 10 Ml Syr IVP 10 ml PRN PRN Administration Sodium Chloride 0 ml 05/31/23 08:30 05/31/23 08:46 Normal Saline Flush 10 Ml Syr IVP Not Given BID ISAIAH Sodium Chloride 0 ml 05/31/23 00:29 Normal Saline 10 Ml Vial IJ DIRECTED PRN Trazodone HCl 100 mg 05/31/23 00:29 Trazodone 100 Mg Tab PO HS PRN PRN Sleep PFSH Active Problems Active Problems: Problem Status Onset Code Acute cholecystitis K81.0 Osteoarthritis of left ankle M19.072 Painful orthopaedic hardware T84.84XA Diverticula of colon K57.30 Adenomatous colon polyp D12.6 Medical History Medical History Tinnitus Degenerative joint disease Degenerative disc disease Ankle joint pain Nevus Actinic keratosis Pulmonary nodule Stress History of asthma Hx of fracture of ankle screws present Degenerative disc disease, lumbar Allergic rhinitis Obesity Mood disorder Shellfish allergy Animal dander allergy History of head injury Rash Back pain, acute Nevus, atypical Skin tag Surgical History Surgical History History of ankle surgery History of colonoscopy (~05/10/20) Tobacco Smoking/Tobacco Use Status: Never Alcohol Alcohol Intake: current Alcohol intake frequency: a few times a month Substance Use Substance use: Never Substance use type: does not use Vital Signs and Lab Results Vital Signs Most Recent Vital Signs in EMR: Most Recent Vital Signs Temp Pulse Resp BP Pulse Ox 37.5 C 81 16 121/73 98 05/31/23 07:25 05/31/23 07:13 05/31/23 07:13 05/31/23 07:13 05/31/23 07:13 Point of Care Results Point of Care Results: Finger Stick Blood Glucose 107 05/31/23 08:31 Lab Results 05/30/23 21:35 05/31/23 06:25 Blood Type / Crossmatch: 2 No Data to Display Complete Blood Count: 2 White Blood Count 14.63 10^3/uL (4.4-10.8) H 05/30/23 21:35 Red Blood Count 4.90 10^6/uL (4.36-5.78) 05/30/23 21:35 Hemoglobin 14.9 g/dL (13.5-17.5) 05/30/23 21:35 Hematocrit 42.6 % (40.0-50.0) 05/30/23 21:35 Platelet Count 280 10^3/uL (130-400) 05/30/23 21:35 Complete Metabolic Panel: 2 Sodium 139 mmol/L (136-145) 05/31/23 06:25 Potassium 3.9 mmol/L (3.5-5.1) 05/31/23 06:25 Chloride 102 mmol/L (98-107) 05/31/23 06:25 Carbon Dioxide 29.1 mmol/L (21.0-32.0) 05/31/23 06:25 BUN 14 mg/dL (7-18) 05/31/23 06:25 Creatinine 1.0 mg/dL (0.70-1.30) 05/31/23 06:25 Est GFR (CKD-EPI 2020) 89.44 (mL/min/1.73m2) 05/31/23 06:25 Calcium 8.4 mg/dL (8.5-10.1) L 05/31/23 06:25 Albumin 3.2 g/dL (3.4-5.0) L 05/31/23 06:25 Glucose 118 mg/dL (74-106) H 05/31/23 06:25 Liver Function Panel: 2 Alanine Aminotransferase (ALT/SGPT) 17 U/L (16-63) 05/31/23 06: 25 Aspartate Amino Transf (AST/SGOT) 7 U/L (15-37) L 05/31/23 06:2 5 Coagulation Panel: 2 No Data to Display Cardiac Panel: 2 No Data to Display Arterial Blood Gas: 2 No Data to Display Venous Blood Gas: 2 No Data to Display Pancreas Panel: 2 Lipase 21 U/L (16-77) 05/30/23 21:35 Thyroid Panel: 2 No Data to Display Infectious Disease: 2 No Data to Display Blood Cultures: 2 No Data to Display Toxicology Panel: 2 No Data to Display Imaging and Studies Imaging and Studies Study information below may be from another EMR and interpreted by another provider. Please see original notes in EMR for more complete details. EKG Summary: Reviewed Anesthesia Assessment and Plan Anesthesia History Personal History: No History of Anesthesia Complications Family History: No Family History of Anesthesia Complications Exercise Tolerance Exercise Tolerance: Metabolic Equivalents>4 Pertinent Negatives Pertinent Negatives: No Symptoms of GERD, No Major Cardiovascular Symptoms or Complaints and No History of CVA/TIA Cardiac & Pulmonary Exam Cardiac Exam: Normal S1/S2 Heart Sounds Pulmonary Exam: Clear Bilateral Breath Sounds Implantable Cardiac Device Does patient have a Pacemaker or an ICD?: No Airway Exam Known Difficult Airway: No Mallampati Class: 2 Mouth Opening: Normal (> 3cm) Thyromental Distance: Greater than 3 cm Facial Hair: Full Hayden Neck Range of Motion: Full ROM Neck Circumference: Normal Teeth Condition: Normal Dentition and Generalized Poor Dentition ASA Classification ASA Score: ASA 3 Emergency Case?: Yes NPO Status NPO Status: NPO Clears >2 hours, Solids >8 hours Anesthesia Plan Resuscitation Status: Full Code Anesthesia Technique: General Anesthesia Airway Planned: Endotracheal Tube Pain Management: Surgeon and patient request nerve block (Lateral and Subcostal TAP blocks (if transition to open)) Monitors Used: Standard Monitors
--- NOTE | 2023-05-31 09:09 | PDOC.CMIN ---
Date of service: 05/31/23 Time of Service: 09:09 Care Management Initial Assmt Initial Assessment REASON FOR HOSPITALIZATION:: Acute cholecystitis PREVIOUS FUNCTIONAL STATUS/SOCIAL/FAMILY SUPPORTS:: Teofilo lives in an apartment in [place] with his Shey and his son. 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 He is independent at baseline and does not receive any community services. CURRENT FUNCTIONAL STATUS:: Teofilo was lying in bed dozing when CM met with him. His was present and answered most of the questions, as Teofilo was still sleepy from surgery. They do noit anticipate needing any services at home. ADVANCE DIRECTIVES:: none Has patient been provided with info about the portal/API?: Yes Did the patient sign up for the portal?: Yes CODE STATUS:: Full Code INSURANCE COVERAGE / FINANCIAL ISSUES:: [employer] ([employer] only) CURRENT HOME/COMMUNITY SERVICES/EQUIPMENT:: none PRIMARY CARE PHYSICIAN:: Hoa Aguirre POTENTIAL DISCHARGE NEEDS:: follow up with surgeon, PCP and plan of care PATIENT/FAMILY EDUCATION NEEDS:: Review of discharge instructions, activity, limitations, diet, follow up plan, discuss Ask Me Three TRANSPORTATION:: via private vehicle with family PLAN:: Anticipate Teofilo will be discharged home with no new services when medically cleared. He will follow up with his surgeon and plan of care and [id number] with family. CM will follow and support discharge planning needs. PFSH All Active Problems S/P cholecystectomy (Acute) Acute cholecystitis (Acute) Osteoarthritis of left ankle (Acute) Painful orthopaedic hardware (Acute) L ankle Diverticula of colon (Acute) Adenomatous colon polyp (Acute) Medical History Tinnitus Degenerative joint disease Degenerative disc disease Ankle joint pain Nevus Actinic keratosis Pulmonary nodule Stress History of asthma Hx of fracture of ankle screws present Degenerative disc disease, lumbar Allergic rhinitis Obesity Mood disorder Shellfish allergy Animal dander allergy History of head injury Rash Back pain, acute Nevus, atypical Skin tag Surgical History History of ankle surgery History of colonoscopy (~12/03/20) Social History Smoking/Tobacco Use Status: Never Smoking risk assessment performed?: Yes Alcohol Intake: current Alcohol Intake frequency: a few times a month Drug use: Never Substance use type: does not use Housing: apartment Current gender identity: male Do you feel safe at home: Yes Do you feel safe in your relationship?: Yes
--- NOTE | 2023-05-31 09:53 | HPE_ITS ---
Date of service: 05/31/23 Time of Service: 09:53 Assessment and Plan Assessment and plan (1) Acute cholecystitis: Status: Acute Assessment and plan: - Patient does need to have surgery as he has a acute infected gallbladder. We discussed expectations with surgery. He will be in the hospital for couple of days on IV antibiotics. 50-50 chance of having to have an open procedure, and I will not know until we get in there. We will try to do it laparoscopically. Risks: The alternatives to surgery, risks, complications, and the possible need to convert to open cholecystectomy were discussed. Also bleeding, infection, pneumonia, blood clots, complications of anesthesia, damage to bowel, bladder, blood vessels, or bile ducts, liver, need for blood transfusions. Also: chronic pain, chronic diarrhea/post-ammon syndrome, reoccurrence of signs and symptoms, port site hernias, adhesions, And risks of anesthesia. He will have a drain and afterwards Patient does wish to proceed with surgery (2) Osteoarthritis of left ankle: Status: Acute (3) Diverticula of colon: Status: Acute (4) Obesity: (5) Tinnitus: History of Present Illness Narrative: 53-year-old white male presented to the ER with right upper quadrant pain and nausea. It came on very suddenly. He has never had problems prior to this. He denies any trauma. He is still having pain today. He is running a white count. He is not running a temp. He has never had any abdominal surgery before. He has had surgery in the past without any problems with anesthesia. He is not diabetic and using metformin for weight loss. He has never had a heart attack or stroke. He is not on any blood thinners. He has no allergies to any medications. He is not currently having any nausea or vomiting. He still has pretty significant right upper quadrant pain. Review of Systems All systems reviewed & are unremarkable except as noted in HPI and below PFSH All Active Problems Acute cholecystitis (Acute) Osteoarthritis of left ankle (Acute) Painful orthopaedic hardware (Acute) L ankle Diverticula of colon (Acute) Adenomatous colon polyp (Acute) Medical History Tinnitus Degenerative joint disease Degenerative disc disease Ankle joint pain Nevus Actinic keratosis Pulmonary nodule Stress History of asthma Hx of fracture of ankle screws present Degenerative disc disease, lumbar Allergic rhinitis Obesity Mood disorder Shellfish allergy Animal dander allergy History of head injury Rash Back pain, acute Nevus, atypical Skin tag Surgical History History of ankle surgery History of colonoscopy (~05/10/20) Social History Smoking/Tobacco Use Status: Never Smoking risk assessment performed?: Yes Alcohol Intake: current Alcohol Intake frequency: a few times a month Drug use: Never Substance use type: does not use Housing: apartment Current gender identity: male Do you feel safe at home: Yes Do you feel safe in your relationship?: Yes Meds Allergies and Home Medications Allergies Allergy/AdvReac Type Severity Reaction Status Date / Time animal dander Allergy Verified 05/30/23 21:31 house dust Allergy Verified 05/30/23 21:31 mold Allergy Verified 05/30/23 21:31 pollen extracts Allergy Verified 05/30/23 21:31 shellfish derived Allergy GI issues Verified 05/30/23 21:31 COVID-19 (SARS-CoV-2) AdvReac Other (See Unverified 05/30/23 21:31 vaccine, hazel Comment) Home Medications Medication Instructions Recorded Confirmed Type albuterol sulfate 90 mcg/actuation 2 puff inhalation Q6H PRN 03/28/20 05/30/23 History aerosol inhaler (ProAir HFA) cholecalciferol (vitamin D3) 50 50 mcg PO DAILY 04/26/20 05/30/23 History mcg (2,000 unit) capsule acetylcysteine 600 mg capsule (NAC) 600 mg PO QID PRN 04/29/22 05/30/23 History flaxseed oil 1,000 mg capsule 500 mg PO DAILY 01/16/23 05/30/23 History metformin 500 mg tablet,extended 500 mg PO BID 05/30/23 05/30/23 History release 24 hr Exam Narrative Exam Narrative: PHYSICAL EXAM GENERAL APPEARANCE: Alert, healthy appearance, oriented, x 3,? in no acute distress HYDRATION: Well hydrated HEAD, EYES, EARS, NECK, THROAT: Head is normocephalic, pupils equal, round, reactive to light and accommodation, ocular movement intact, sclera clear and no jaundice. ?Dentition intact. LUNGS: normal respiration/normal chest excursion. ?Clear to auscultation bilaterally. ?No wheeze. ?HEART: Regular rate and rhythm. no murmurs EXTREMITY: No edema or cyanosis.? no leg pain, redness, swelling.? ABDOMEN: soft and non-tender to palpation.? Normal bowel sounds.? No hernias.? Results Labs 05/30/23 21:35 05/31/23 06:25 Labs: Laboratory Results - last 24 hr 05/30/23 05/30/23 05/31/23 21:35 22:30 06:25 WBC 14.63 H RBC 4.90 Hgb 14.9 Hct 42.6 MCV 87 MCH 30.4 MCHC 35.0 RDW 12.5 Plt Count 280 MPV 9.3 Immature Gran % 0.4 Neutrophils % 82.7 Lymphocytes % 9.0 Monocytes % 7.5 Eosinophils % 0.1 Basophils % 0.3 Nucleated RBC % 0.0 Absolute Neutrophils 12.10 H Absolute Lymphocytes 1.32 Absolute Monocytes 1.10 H Absolute Eosinophils 0.01 Absolute Basophils 0.04 Sodium 135 L 139 Potassium 3.8 3.9 Chloride 97 L 102 Carbon Dioxide 26.2 29.1 Anion Gap 11.8 H 7.9 BUN 11 14 Creatinine 1.0 1.0 Est GFR (CKD-EPI 2020) 89.44 89.44 Glucose 137 H 118 H Calcium 9.2 8.4 L Total Bilirubin 0.7 0.8 AST 11 L 7 L ALT 22 17 Alkaline Phosphatase 64 53 Total Protein 7.2 6.0 L Albumin 3.9 3.2 L Lipase 21 Urine Color Yellow Urine Clarity Clear Urine pH 7.0 Ur Specific [place] 1.020 Urine Protein Trace H Urine Ketones Negative Urine Blood Trace-intact H Urine Nitrite Negative Urine Bilirubin Negative Urine Urobilinogen 0.2 Ur Leukocyte Esterase Negative Urine RBC 3-5 H Urine WBC Negative Ur Epithelial Cells Negative Urine Crystals Negative Urine Bacteria Rare Urine Casts Negative Urine Mucus Moderate Ur Culture Indicated? No Urine Glucose Negative Last Vital Signs Temp 37.5 C 05/31/23 07:25 Pulse 81 05/31/23 07:13 Resp 16 05/31/23 07:13 BP 121/73 05/31/23 07:13 Pulse Ox 98 05/31/23 07:13 Time Spent Time spent with Patient: 55-74 minutes Time was spent: preparing to see the patient(eg.review tests), obtaining and/or reviewing separately otained hiistory, ordering medications,tests, procedures, referring, communicating with other health respiratory care specialist, indepentently interpreting results, counseling the patient and care coordination
[2023-05-31] MEDS: Lactated Ringers 1,000 ML 30 ML IV (10:13)
[2023-05-31] MEDS: Indocyanine green 25 MG VIAL (10:47)
[2023-05-31] MEDS: Bupivacaine 0.25% Pres-Free 30 ML VIAL (11:53)
--- NOTE | 2023-05-31 11:53 | GB_PTH ---
PATIENT: Teofilo Ghosh LOC: U#:[id number] AGE/SX: 53/M ROOM: 208 RE05/31/[address]: Carmen Jean : 1970 BED: A DIS: 06/02/2023 SPEC #: [id number] RECD: 06/02/23 12:58 STATUS: SHAYY REIsaiah #: [id number] BRANDIE: 05/31/23 11:[address]: Carmen Jean DEPT: Surgical Specimen RECD BY: Lucila Michaud ENTERED: 06/02/23 12:59 SP TYPE: GB OTHR DR: Pop Diaz Kathryn Tissues: 1 - GALLBLADDER Procedures: GROSS AND MICRO LEVEL 3 Comments: [id number]
--- NOTE | 2023-05-31 13:18 | ROE_ITS ---
Date of service: 05/31/23 Time of Service: 13:18 Operative Note Operative Note DATE OF PROCEDURE: 05/31/23 PRE-OP DIAGNOSIS: acute ammon POST-OP DIAGNOSIS: same (with stones ) PROCEDURE: Attempted laparoscopic cholecystectomy and open cholecystectomy SURGEON: Carmen Jean SENIOR LOSS CONTROL SPECIALIST: Hiral Chaves ANESTHESIA TYPE: Local By Surgeon, General LMA/ETT and Primary Nerve Block Refer to Anesthesia Record ESTIMATED BLOOD LOSS: 300 PATHOLOGY: other COMPLICATIONS: None Patient was transported to: PACU Patient's condition: stable Procedure Description: Patient presented to the ER with acute cholecystitis and is here today for cholecystectomy. We did discuss that we will attempt laparoscopically, but that he does have a high risk of going open due to his acute disease. Informed consent was obtained, explaining risks and benefits of the procedure including but not limited to bleeding, infection, pneumonia, blood clots, possible damage to bowel, bladder, blood vessels, bile ducts, possible open procedure, chronic pain or numbness, hernias, complications of general anesthesia, and other unforetold complications. PROCEDURE: The patient agrees and is brought to the operative room suite and placed in supine position. Anesthesia was administered per the Department of Anesthesia. The patient did receive IV antibiotics. NG tube and Burks catheter are placed. The patient was prepped and draped in the usual sterile fashion using DuraPrep scrub solution. Pause for the cause was done. 20 mL of 1% buffered lidocaine was used for local anesthetization. The patient agrees and is brought to the operative room suite and placed in supine position. Pt receives IV ICG preOp to aid w/ bile duct visualization.? Anesthesia was administered per the Department of Anesthesia. The patient did receive IV antibiotics. NG tube and Burks catheter are placed. The patient was prepped and draped in the usual sterile fashion using DuraPrep scrub solution. Pause for the cause was done. 20 mL of 1% buffered lidocaine was used for local anesthetization. A stab incision was made in the umbilicus and the Verres inserted. Drop test was positive and insufflation was begun. When 15 mm of pressure was noted on the monitor, the Veress was removed and #5 port inserted. The camera was inserted through the port and shows no damage to underlying structures. Under direct visualization following creation of local field blocks, two 5 mm ports in the right upper quadrant. The omentum is adhered to the gallbladder. This is taken down with a combination of blunt and sharp dissection. The gallbladder wall is thickened/edematous/erythematous. The gallbladder is drained and decompressed. The bile is a thick greenish color. It is sent for culture. We attempted to dissect down to the hepatoduodenal ligament and visualize the base of the gallbladder and the cystic duct and artery. The hepato-duodenal ligament is thickened and inflamed. I am unable to get down to the neck of the GB and cystic duct. Due to the degree of inflammation it was decided to convert the gallbladder to open. All laparoscopic instruments were passed off the field. Pneumoperitoneum is evacuated. The ports are removed. ?A paramedian incision was made approximately 5 cm in length with a #15 blade scalpel. Next, hemostasis was obtained using electro Bovie cautery. Dissection was carried down transrectus in the midline to the posterior rectus fascia, and to extend the incision and the abdomen was entered. The gallbladder was immediately visualized and brought up into view, grasped with two ring clamps elevated. There is are some omental adhesions that were taken down with blunt dissection. The hepatoduodenal ligament is entered.? The cystic artery and cystic duct, which were both identified. The gallbladder was taken off of the liver to create the critical view of safety.? Both artery and duct are i dentified.? The cystic artery was clipped, two distal and one proximal to the gallbladder cutting between with Metzenbaum scissors. The cystic duct was identified. Clips are placed across the duct.? The duct is ligated in between clips with a Metzenbaum scissors. The gallbladder was then removed from the liver bed using electro cautery. A plane was created. The hemostasis was obtained using the electro Bovie cautery and Floseal. The gallbladder was then removed as specimen, sent to pathology.? The remainder of the fossa shows no active bleeding or bile leakage. Floseal is placed in the liver bed to aid in hemostasis. A NISA drain is placed in the gallbladder fossa and brought out through one of the 5 mm port sites. It is sewn in with 2-0 nylon. Sponge and needle counts are current.? Interceed is placed under the incision.?? The peritoneum as well as posterior rectus fascia was approximated with a running #0 Vicryl suture and then the anterior rectus fascia was closed with PDS.. Skin lokesh were used on the skin and a sudhakar's dressing was applied, and the patient was transferred to recovery in stable condition.
[2023-05-31] MEDS: fentaNYL 100 MCG/2 ML VIAL IVP ×2 (13:20→13:27)
--- NOTE | 2023-05-31 13:32 | W.ANESNERVE ---
Nerve Block Single Injection Procedure Date and Time Date Performed: 05/31/23 Procedure Start: 12:43 Location Where Procedure Performed Procedure Location: Operating Room Procedure Stop: 12:49 Reason Performed: Postoperative Analgesia Requesting Provider: Carmen Jean Timeout Performed Timeout Performed: Yes Monitoring Used ECG, Blood Pressure, SpO2 and ETCO2 Sterility Sterility: Hand Hygiene, Surgical Cap, Surgical Mask, Sterile Gloves, Sterile Drape/Sheet, Sterile Gown and Chlorhexidine Sedation Given During Procedure Sedation Given (Indicate Dose Given): No Sedation given Patient Mental Status Patient Mental Status: Performed under general anesthesia Nerve Block 1st Nerve Block: Laterality: Right Block Type: TAP Unilateral (Lateral TAP block) Ultrasound Image Saved?: Yes Needle / Catheter Used: 100mm SonoPlex II Local Anesthetic Bolus (Indicate Dose Given): Injected in 3-5ml increments after negative blood aspiration, Bupivacaine 0.25% Dose:: 10 ml and Exparel Dose:: 10 ml Additives (Indicate Dose Given): Normal Saline Ultrasound: Sterile probe cover and gel used Nerve Stimulator: Not Used Paresthesia: None Procedure Tolerated: No Complications and Patient tolerated well Procedure Outcome: Successful Performed By: Pop Bledsoe 2nd Nerve Block: Laterality: Right Block Type: TAP Unilateral (Subcostal) Ultrasound Image Saved?: Yes Needle / Catheter Used: 100mm SonoPlex II Local Anesthetic Bolus (Indicate Dose Given): Injected in 3-5ml increments after negative blood aspiration, Bupivacaine 0.25% Dose:: 10 and Exparel Dose:: 10 Additives (Indicate Dose Given): Normal Saline Ultrasound: Sterile probe cover and gel used Nerve Stimulator: Not Used Paresthesia: None Procedure Tolerated: No Complications and Patient tolerated well Procedure Outcome: Successful Performed By: Pop Bledsoe
--- NOTE | 2023-05-31 13:45 | W.ANESPOSTOP ---
Postoperative Evaluation Date, Time and Location Date Performed: 05/31/23 Time Performed: 13:45 Patient Location: PACU Vital Signs Most Recent Imported Vital Signs: Most Recent Vital Signs Temp Pulse Resp BP Pulse Ox 36.7 C 67 10 L 117/63 96 05/31/23 13:40 05/31/23 13:40 05/31/23 13:40 05/31/23 13:40 05/31/23 13:40 Pain Score Most Recent Pain Score: Most Recent Pain Score Pain Level [RUQ] 4 05/31/23 08:58 Pain Level 4 05/31/23 13:40 Assessment Mental Status: Arousable with meaningful communication Airway and Respiratory Function: Patent airway with normal (patient baseline) respiratory exam Cardiovascular Function: Hemodynamically Stable Hydration Status: Adequately Hydrated Nausea & Vomiting: No Nausea or Vomiting Pain: Pt. Denies Any Pain Peripheral Nerve Block: Regional nerve block not resolved at time of post operative discharge
--- NOTE | 2023-05-31 13:55 | W.PM.PROGNOT ---
Date of Service Date of service: 05/31/23 Time of Service: 13:55 Assessment and Plan Assessment and plan (1) S/P cholecystectomy: Status: Acute Assessment and plan: The patient is doing well post-op. Their pain is well controlled. They are having no nausea or vomiting. The pt is not having any chest pain or SOB, productive cough; no calf pain or swelling. The pt is making good urine. The pt pain is adequately controlled. The case was discussed with nursing and patient?s progress reviewed. All of the pt's home medications were addressed and adjusted accordingly for their oral intact status. HEENT: no jaundice. no eye pain/drainage/redness/swelling. Mild sore throat Cardio- NSR no chest pain, BP stable. Pulm: no sob or productive cough. no hemoptysis Incision- clean/dry. Dressing intact no excessive bleeding or drainage I discussed with the patient and/or there family about the findings in surgery and the pt's progress. We reviewed expectations for progress in the hospital; what the pt could expect for recovery time and length of stay. We discussed the importance of walking and pulmonary toilet to avoid blood clots and pneumonia. Continue current plans for pulmonary toilet, GI and DVT prophylaxis. We shall continue the current plan for pain management as it is at an appropriate level, and working well for the pt. Appropriate measures will be taken for constipation prevention, and this was also reviewed with the pt. The wound care plan was reviewed with nursing as well. -d/c reed in am ERLIN NISA drain- d/c prior to DC water ice today/clears in am zosyn pulm toilet lovenox in am Miralax see orders (2) Acute cholecystitis: Status: Acute Objective Last Vital Signs Temp 36.7 C 05/31/23 13:45 Pulse 60 05/31/23 13:45 Resp 11 L 05/31/23 13:45 BP 115/64 05/31/23 13:45 Pulse Ox 96 05/31/23 13:45 Laboratory Results - last 24 hr 05/30/23 05/30/23 05/31/23 21:35 22:30 06:25 WBC 14.63 H RBC 4.90 Hgb 14.9 Hct 42.6 MCV 87 MCH 30.4 MCHC 35.0 RDW 12.5 Plt Count 280 MPV 9.3 Immature Gran % 0.4 Neutrophils % 82.7 Lymphocytes % 9.0 Monocytes % 7.5 Eosinophils % 0.1 Basophils % 0.3 Nucleated RBC % 0.0 Absolute Neutrophils 12.10 H Absolute Lymphocytes 1.32 Absolute Monocytes 1.10 H Absolute Eosinophils 0.01 Absolute Basophils 0.04 Sodium 135 L 139 Potassium 3.8 3.9 Chloride 97 L 102 Carbon Dioxide 26.2 29.1 Anion Gap 11.8 H 7.9 BUN 11 14 Creatinine 1.0 1.0 Est GFR (CKD-EPI 2020) 89.44 89.44 Glucose 137 H 118 H Calcium 9.2 8.4 L Total Bilirubin 0.7 0.8 AST 11 L 7 L ALT 22 17 Alkaline Phosphatase 64 53 Total Protein 7.2 6.0 L Albumin 3.9 3.2 L Lipase 21 Urine Color Yellow Urine Clarity Clear Urine pH 7.0 Ur Specific [place] 1.020 Urine Protein Trace H Urine Ketones Negative Urine Blood Trace-intact H Urine Nitrite Negative Urine Bilirubin Negative Urine Urobilinogen 0.2 Ur Leukocyte Esterase Negative Urine RBC 3-5 H Urine WBC Negative Ur Epithelial Cells Negative Urine Crystals Negative Urine Bacteria Rare Urine Casts Negative Urine Mucus Moderate Ur Culture Indicated? No Urine Glucose Negative Time Spent with Patient Time Spent with Patient: 25-34 minutes Time was spent: preparing to see the patient(eg.review tests), obtaining and/or reviewing separately otained hiistory, ordering medications,tests, procedures, referring, communicating with other health director of healthcare systems, indepentently interpreting results, counseling the patient and care coordination
[2023-06-01] MEDS: ACETAMINOPHEN 1,000 MG/100 ML BTL 400 MG IVPB ×2 (01:36→08:00)
[2023-06-01] MEDS: Normal Saline 1,000 ML 100 ML IV (01:37)
[2023-06-01 02:10] VITALS: BP 110/73; PULSE 58; RESP 18; TEMP 36; O2SAT 93
[2023-06-01] MEDS: PIPERACILLIN/TAZO 3.375 GM in Normal Saline 50 ML IVPB ×4 (04:04→21:14)
[2023-06-01 06:40] LABS: Abs Immature Grans 0.07 10^3/uL (0.0-0.06); Absolute Monocyte Count 1.06 10^3/uL (0.1-0.8); Basophils % 0.1; HCT 38.5 % (40.0-50.0); HGB 12.8 g/dL (13.5-17.5); Immature Grans % 0.5; Lymphocytes % 7.1; MCH 30.2 pg (27.0-33.0); MCHC 33.2 % (32.0-36.0); MCV 91 fL (80-95); MPV 9.9 fL (8.0-11.0); Monocytes % 7.2; Neutrophils % 85.1; Platelet Count 246 10^3/uL (130-400); RBC 4.24 10^6/uL (4.36-5.78); RDW 12.7 % (11.8-14.1); RDW-SD 41.5 fL; WBC 14.75 10^3/uL (4.4-10.8)
[2023-06-01 06:50] LABS: Absolute Basophil Count 0.01 10^3/uL (0.0-0.2); Absolute Lymphocyte Count 1.05 10^3/uL (1.2-3.4); Absolute Neutrophil Count 12.55 10^3/uL (1.2-6.7)
[2023-06-01 06:57] LABS: ALT 46 U/L (16-63); AST 24 U/L (15-37); Albumin 2.8 g/dL (3.4-5.0); Alkaline Phosphatase 55 U/L (46-116); Anion Gap 8.7 mmol/L (3-11); BUN 19 mg/dL (7-18); Bilirubin, Total 0.5 mg/dL (0.2-1.0); CO2 27.3 mmol/L (21.0-32.0); Calcium 8.4 mg/dL (8.5-10.1); Chloride 103 mmol/L (98-107); Estimated GFR 89.44 (mL/min/1.73m2); Glucose 123 mg/dL (74-106); Sodium 139 mmol/L (136-145)
[2023-06-01 07:22] VITALS: BP 106/68; PULSE 64; RESP 18; TEMP 37.1; O2SAT 95
[2023-06-01] MEDS: Normal Saline Flush 10 ML SYR IVP ×6 (07:59→23:55)
[2023-06-01] MEDS: Polyethylene Glycol 3350 17 GM PACKET PO (07:59)
[2023-06-01 09:17] VITALS: O2SAT 91
[2023-06-01 11:13] VITALS: O2SAT 95
--- NOTE | 2023-06-01 11:16 | PGE_ITS ---
Date of Service Date of service: 06/01/23 Time of Service: 11:16 Assessment and Plan Assessment and plan (1) S/P cholecystectomy: Status: Acute Assessment and plan: POD #1 open ammon cont abx pain management- multi-modal encourage IS walking Bowel regime. diet as edyvi (2) Acute cholecystitis: Status: Acute (3) Obesity: (4) Degenerative disc disease: Subjective Subjective Interval history since last seen: Pt is doing well. no headaches. No CP or SOB. no productive cough. no dysuria. no leg pain or swelling. pt notes pain in LUQ. NISA is mostly serous/no bleeding . tolerating clears. He is hungry. He feels better getting up Exam Narrative Exam Narrative: PHYSICAL EXAM GENERAL APPEARANCE: Alert, healthy appearance, oriented, x 3,? in no acute distress HYDRATION: Well hydrated HEAD, EYES, EARS, NECK, THROAT: Head is normocephalic, pupils equal, round, reactive to light and accommodation, ocular movement intact, sclera clear and no jaundice. ?Dentition intact. mild sore throat.? No jaw pain. No thrush LUNGS: normal respiration/normal chest excursion. ?Clear to auscultation bilaterally. ?No wheeze. ?HEART: Regular rate and rhythm. no murmurs EXTREMITY: No edema or cyanosis.? no leg pain, redness, swelling.? ABDOMEN: incision is c/d/i. NISA- serous. + BS Objective Last Vital Signs Temp 37.1 C 06/01/23 07:22 Pulse 64 06/01/23 07:22 Resp 18 06/01/23 07:22 BP 106/68 06/01/23 07:22 Pulse Ox 95 06/01/23 11:13 Laboratory Results - last 24 hr 06/01/23 06:07 WBC 14.75 H RBC 4.24 L Hgb 12.8 L D Hct 38.5 L MCV 91 D MCH 30.2 MCHC 33.2 RDW 12.7 Plt Count 246 MPV 9.9 Immature Gran % 0.5 Neutrophils % 85.1 Lymphocytes % 7.1 Monocytes % 7.2 Eosinophils % 0.0 Basophils % 0.1 Nucleated RBC % 0.0 Absolute Neutrophils 12.55 H Absolute Lymphocytes 1.05 L Absolute Monocytes 1.06 H Absolute Eosinophils 0.00 Absolute Basophils 0.01 Sodium 139 Potassium 4.0 Chloride 103 Carbon Dioxide 27.3 Anion Gap 8.7 BUN 19 H Creatinine 1.0 Est GFR (CKD-EPI 2020) 89.44 Glucose 123 H Calcium 8.4 L Total Bilirubin 0.5 AST 24 ALT 46 Alkaline Phosphatase 55 Total Protein 6.0 L Albumin 2.8 L Time Spent with Patient Time Spent with Patient: 25-34 minutes Time was spent: preparing to see the patient(eg.review tests), obtaining and/or reviewing separately otained hiistory, ordering medications,tests, procedures, referring, communicating with other health post anesthesia care unit nurse, indepentently interpreting results, counseling the patient and care coordination
[2023-06-01] MEDS: Acetaminophen 500 MG TAB 1000 MG PO ×3 (11:31→23:54)
[2023-06-01] MEDS: Ketorolac 15 MG/ML VIAL IVP ×3 (11:54→23:55)
[2023-06-01 15:17] VITALS: BP 112/74; PULSE 64; RESP 17; TEMP 36.8; O2SAT 94
[2023-06-02 00:13] VITALS: BP 122/74; PULSE 67; RESP 18; TEMP 36.9; O2SAT 97
[2023-06-02] MEDS: PIPERACILLIN/TAZO 3.375 GM in Normal Saline 50 ML IVPB ×2 (03:57→09:44)
[2023-06-02] MEDS: Acetaminophen 500 MG TAB 1000 MG PO ×2 (06:10→12:47)
[2023-06-02] MEDS: Ketorolac 15 MG/ML VIAL IVP ×2 (06:10→12:48)
[2023-06-02 06:26] LABS: Abs Immature Grans 0.04 10^3/uL (0.0-0.06); Absolute Basophil Count 0.03 10^3/uL (0.0-0.2); Absolute Eosinophil Count 0.12 10^3/uL (0.0-0.7); Absolute Lymphocyte Count 2.47 10^3/uL (1.2-3.4); Absolute Monocyte Count 0.71 10^3/uL (0.1-0.8); Absolute Neutrophil Count 6.12 10^3/uL (1.2-6.7); Basophils % 0.3; Eosinophils % 1.3; HCT 32.5 % (40.0-50.0); HGB 11.2 g/dL (13.5-17.5); Immature Grans % 0.4; MCH 31.2 pg (27.0-33.0); MCHC 34.5 % (32.0-36.0); MCV 91 fL (80-95); MPV 9.8 fL (8.0-11.0); Monocytes % 7.5; Neutrophils % 64.5; Platelet Count 237 10^3/uL (130-400); RBC 3.59 10^6/uL (4.36-5.78); RDW 12.6 % (11.8-14.1); RDW-SD 41.9 fL; WBC 9.49 10^3/uL (4.4-10.8)
[2023-06-02 07:23] VITALS: BP 116/74; PULSE 56; RESP 18; TEMP 36.5; O2SAT 97
[2023-06-02] MEDS: Polyethylene Glycol 3350 17 GM PACKET PO (07:30)
[2023-06-02] MEDS: Normal Saline Flush 10 ML SYR IVP (07:31)
--- NOTE | 2023-06-02 11:53 | W.PM.PROGNOT ---
Date of Service Date of service: 06/02/23 Time of Service: 11:53 Assessment and Plan Assessment and plan (1) S/P cholecystectomy: Assessment and plan: POD 2# open ammon cont abx pain management- multi-modal ERLIN dressing can remain in place for a total of 7 days. encourage IS walking Bowel regimen. No BM as of yet will order suppository Diet, low fat Encouraged continued ambulation. Leukocytosis has resolved. Awaiting BM, hopefully d/c home later today pt seen and examined. agree w/ above (2) Acute cholecystitis: Status: Acute (3) Obesity: (4) Degenerative disc disease: Subjective Subjective Interval history since last seen: Arrive with the patient ambulating in his room. he states he is feeling better today, however has soreness. Exam Const General: cooperative, healthy appearing and comfortable Orientation: alert and oriented x3 Resp Effort & Inspection: normal respiratory effort, no audible wheezes and no cough GI Inspection: distended Palpation: soft, no guarding and tender Other: ERLIN dressing in place. NISA drain with minimal bloody drainage Objective Last Vital Signs Temp 36.5 C 06/02/23 07:23 Pulse 56 L 06/02/23 07:23 Resp 18 06/02/23 07:23 BP 116/74 06/02/23 07:23 Pulse Ox 97 06/02/23 07:23 Laboratory Results - last 24 hr 06/02/23 06:12 WBC 9.49 RBC 3.59 L Hgb 11.2 L Hct 32.5 L MCV 91 MCH 31.2 MCHC 34.5 RDW 12.6 Plt Count 237 MPV 9.8 Immature Gran % 0.4 Neutrophils % 64.5 Lymphocytes % 26.0 Monocytes % 7.5 Eosinophils % 1.3 Basophils % 0.3 Nucleated RBC % 0.0 Absolute Neutrophils 6.12 Absolute Lymphocytes 2.47 Absolute Monocytes 0.71 Absolute Eosinophils 0.12 Absolute Basophils 0.03 Time Spent with Patient Time Spent with Patient: <25 minutes Time was spent: preparing to see the patient(eg.review tests), obtaining and/or reviewing separately otained hiistory and indepentently interpreting results
--- NOTE | 2023-06-02 12:08 | PDOC.CMDIS ---
Date of service: 06/02/23 Time of Service: 12:08 LACE Index Scoring Tool Questions: Length of Stay (in days): 2 Was the patient admitted via the E.D.?: Yes E.D. Visits: 2 Answers: Total Score: 7 Risk of Readmission: Low Risk Care Management Discharge Plan Reason for Hospitalization: Acute cholecystitis Discharge Plan: Teofilo will be discharged home with no new services when medically cleared. He will follow up with his surgeon and plan of care and transport via private vehicle with family. Patient/Family Education Needs: Review discharge instructions, discuss Ask Me Three.
[2023-06-02] MEDS: Bisacodyl 10 MG SUPP PR (13:13)
--- NOTE | 2023-06-02 13:19 | W.NUTRFU ---
Date of service: 06/02/23 Time of Service: 12:30 Nutrition Note NOTE: PT is 53yo male s/p cholecystectomy and ordered for fat restricted diet. 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 Gave pt education handout on fat restricted diet with recommendations for him to limit total fat to 85g based on his current estimated nutrition needs to lose weight (2000-2200kcals) and suggested no more than 35% of his kcals come from fat. Reviewed he will find his tolerance level of fat at meals through how he reacts with GI issues and to creep up to fat in foods slowly and focus on healthy fats from plants and marine foods. intake is good. denies diarrhea currently although he says he will find out soon as he feels need for BM coming on. Gave him my contact info should he desire to get together for outpatient nutrition services on any of his dietary restrictions and/or goals. Time Spent in Nutritional Counseling and Treatment: 15 minutes
[2023-06-02 15:06] VITALS: BP 111/68; PULSE 60; RESP 16; TEMP 36.3; O2SAT 96
--- NOTE | 2023-06-02 15:07 | W.PM.DS.N ---
Date of service: 06/02/23 Time of Service: 15:07 DS: Diagnosis Discharge Diagnosis (1) S/P cholecystectomy: (2) Acute cholecystitis: Status: Acute (3) Obesity: (4) Degenerative disc disease: Discharge Plan Disposition Patient Disposition: Home Condition: Good Discharge Details Reason For Visit: Acute Cholecystitis Admit Date/Time: 05/31/23 00:30 Admit Provider: Pop Diaz Attending Provider: Carmen Jean Primary Care Provider: Hoa Aguirre [facility] Course Hospital Course: see addendum Home Meds and New Rx's Prescriptions: New amoxicillin-pot clavulanate 875-125 mg tablet 1 tab PO BID 4 Days Qty: 8 0RF tramadol 50 mg tablet 50 mg PO Q4H PRNQty: 14 0RF Continued albuterol sulfate [ProAir HFA] 90 mcg/actuation HFA aerosol inhaler 2 puff inhalation Q6H PRN acetylcysteine [NAC] 600 mg capsule 600 mg PO QID PRN flaxseed oil 1,000 mg Capsule 500 mg PO DAILY metformin 500 mg tablet extended release 24 hr 500 mg PO BID No Action cholecalciferol (vitamin D3) 50 mcg (2,000 unit) capsule 50 mcg PO DAILY Discharge Instructions Additional Instructions: Care after Gallbladder Surgery -Pain control: ?For the first 5 days after surgery, take you pain meds continuously and not just when you have pain.?? Alternate Tylenol 1000mg by mouth every 8 hours, and Ibuprofen 600mg every 6 hours.? Make sure you take ibuprofen with food and not on an empty stomach.? ??Use the tramadol for breakthrough pain- pain that is greater than a 7. ?- Use ICE! Ice really helps to keep the swelling down, and swelling causes pain. ??Twenty minutes on, and then off, continuously for the first 5 days.? After the first 5days, you can just use the Tylenol, ibuprofen, and ice, when you have pain.?? If you are taking narcotic pain medication, follow the instructions on the label and do not drive. Pain medications can make you very constipated. Make sure you are moving your bowels daily. If not, take Miralax, - Narcotic pain meds make you very constipated.? Take a dose of milk of magnesia the morning after surgery. ? Use an ice bag for the first 72 hours. This helps to decrease swelling, which causes pain. It is normal to be more sore/painful and swollen towards the end of the day and first thing in the morning. ? Use Miralax ?to prevent constipation (this is a particular side effect of pain medication and anesthesia). Do not allow yourself to become constipated. -Leave wound Vac in place. If the light is flashing yellow or red- reinforce edges w/ tape. If this does not work, turn battery pack off and call office in am. F/u June 09 1:30pm antibiotics daily for 4 days. yogurt daily for the next 30 days ? Avoid fatty or greasy foods; introduce these slowly, with care, after about 1 month. High-fat foods include: ? Foods that are fried, like Occitan fries and potato chips ? High-fat meats, such as barron, bologna, sausage, ground beef, and ribs, pork products ? High-fat dairy products, such as cheese, ice cream, cream, whole milk, and sour cream ? Pizza ? Foods made with lard or butter ? Creamy soups or sauces ? Meat gravies ? Chocolate ? Oils, such as palm and coconut oil ? Skin of chicken or turkey ? Nuts and nut butters ? Avocadoes ? Start out eating very small, bland amounts of food. Do not take pain pills on an empty stomach. -You should walk frequently, gradually, increasing the distance. You may climb stairs, just go slowly. ? Do not go swimming or sit in a hot tub for two weeks. ? There are no stitches to remove. ? Do not drive your car x72hrs and then only if you have no pain and can move freely. Do not drive if you are taking pain narcotic pain medications. ? You may resume sexual activity whenever pain and soreness subside, usually in 2 weeks. ? Do no lift anything over 5 lbs. for two weeks. ? You may return to work in one week, or when you feel able, provided you do not have to do any heavy lifting or prolonged standing. ? You should return to Dr. Jean?s office for a post-op appointment about two weeks after surgery. A follow-up should have been scheduled for you already.? If there is not, please call the [facility] at: [phone] to schedule an appointment. My Medications for pain and nausea are: Tylenol/ibuprofen ?and ultram- for severe pain When to Call the Office: ? If the incision becomes red or swollen, or there is more than a little drainage from it. ? If you develop a temperature higher than 100.5 F. ? If your eyes turn yellow ? Vomiting and can?t keep fluids down Activity:: see above Equipment/Supplies:: No Equipment Needed Diet:: low fat DS: Summary Time Spent with Patient providing and/or coordinating discharge services: Less than 30 minutes Status at Discharge Functional status at discharge: independent ambulation Overall status at discharge: patient is progressing back to baseline Mental Status: mental status grossly normal Speech and Movement: speech and movement normal Mood: congruent mood Affect: normal affect Exam Psych Mental Status: mental status grossly normal Speech and Movement: speech and movement normal Mood: congruent mood Affect: normal affect DS: Data Vitals/I&O Vitals and I&O: Vital Signs Temperature 36.3 C L 06/02/23 15:06 Temperature Source Tympanic 06/02/23 15:06 Pulse 60 06/02/23 15:06 Pulse Rhythm Regular 06/02/23 09:33 Pulse 80 05/31/23 01:01 Respiratory Rate 16 06/02/23 15:06 Respiratory Effort Normal 06/02/23 09:33 Respiratory Depth Normal 06/02/23 09:33 Respiratory Pattern Normal 06/02/23 09:33 Blood Pressure 111/68 06/02/23 15:06 Blood Pressure Mean 84 05/31/23 01:01 Blood Pressure Position Supine 05/30/23 21:28 Pulse Oximetry 96 06/02/23 15:06 Respiratory End-tidal CO2 41 05/31/23 13:45 Oxygen Delivery Method Room Air 06/02/23 15:06 Oxygen Flow Rate 0 06/02/23 15:06 Pain Level 3 06/02/23 15:06 Intake & Output 06/01/23 06/02/23 06/02/23 23:59 11:59 23:59 Intake Total 350 / 2548.333 50 / 50 Output Total 305 / 1120 20 / 40 20 / 40 Balance 45 / 1428.333 30 / 10 -20 / 10 Intake: IV 100 / 2298.333 50 / 50 Oral 250 / 250 Output: Drainage 55 / 95 20 / 40 20 / 40 Right Lower Abdomen / 40 Urine 250 / 1025 Other: Urine Color Yellow Yellow Urine Appearance Clear Clear Urine Odor None Comment pt stated that he voided this am pT uses bathroom independently. Stool Size Large Stool Characteristics Formed Hard Voiding Methods Toilet Toilet Toilet Data Completed and Pending Labs on day of discharge: Labs from last 24 hours 06/02/23 06:12 WBC 9.49 RBC 3.59 L Hgb 11.2 L Hct 32.5 L MCV 91 MCH 31.2 MCHC 34.5 RDW 12.6 Plt Count 237 MPV 9.8 Immature Gran % 0.4 Neutrophils % 64.5 Lymphocytes % 26.0 Monocytes % 7.5 Eosinophils % 1.3 Basophils % 0.3 Nucleated RBC % 0.0 Absolute Neutrophils 6.12 Absolute Lymphocytes 2.47 Absolute Monocytes 0.71 Absolute Eosinophils 0.12 Absolute Basophils 0.03 Preliminary micro results at discharge 05/31/23 11:03 Anaerobic Culture - Preliminary Gallbladder - Bile 05/31/23 11:03 Surgical Culture - Preliminary Gallbladder - Bile Streptococcus species PFSH All Active Problems Acute cholecystitis (Acute) Osteoarthritis of left ankle (Acute) Painful orthopaedic hardware (Acute) L ankle Diverticula of colon (Acute) Adenomatous colon polyp (Acute) Medical History Tinnitus Degenerative joint disease Degenerative disc disease Ankle joint pain Nevus Actinic keratosis Pulmonary nodule Stress History of asthma Hx of fracture of ankle screws present Degenerative disc disease, lumbar Allergic rhinitis Obesity Mood disorder Shellfish allergy Animal dander allergy History of head injury Rash Back pain, acute Nevus, atypical Skin tag Surgical History (Updated 06/02/23 @ 08:49 by Dejah Valentine) S/P cholecystectomy (~05/2023) History of ankle surgery History of colonoscopy (~05/10/20) Social History Smoking/Tobacco Use Status: Never Smoking risk assessment performed?: Yes Alcohol Intake: current Alcohol Intake frequency: a few times a month Drug use: Never Substance use type: does not use Housing: apartment Current gender identity: male Do you feel safe at home: Yes Do you feel safe in your relationship?: Yes Time Spent with Patient Time Spent with Patient: <45 minutes Time was spent: preparing to see the patient(eg.review tests), obtaining and/or reviewing separately otained hiistory, ordering medications,tests, procedures, referring, communicating with other health healthcare representative, indepentently interpreting results, counseling the patient and care coordination
--- NOTE | 2023-06-02 16:33 | CHAPLAIN ---
Teofilo was resting in bed when I visited. He was pleasant and easily engaged in a conversation. His , Shey, works in [employer] at [employer]. Teofilo had surgery and said he is hopeful he'll be discharged today. I explained my role and offered support.
--- NOTE | 2023-06-03 07:30 | NUR.NOTE ---
Accessed chart to determine orders for EKG and to determine whether or not one needs to be cancelled. Nursing Note:
== END 2023-06-02 17:32 | disposition home or self-care (01) | DRG 415 ==
LOC: ER 05-31 00:20 → MS 05-31 01:53
PROVIDERS: Admitting Provider Family Medicine; Emergency Provider Emergency Medicine; PCP Nurse Practitioner Family; Visit Provider Surgery
PROC: 0FT44ZZ Resection of Gallbladder, Percutaneous Endoscopic Approach (ICD-10-PCS; CPT 47562; principal; 2023-05-31 09:30)
DX: K80.00 Calculus of gallbladder with acute cholecystitis without obstruction (principal); T84.84XA Pain due to internal orthopedic prosthetic devices, implants and grafts, initial encounter; Z68.41 Body mass index [BMI] 40.0-44.9, adult; M19.072 Primary osteoarthritis, left ankle and foot; E66.9 Obesity, unspecified; K57.30 Diverticulosis of large intestine without perforation or abscess without bleeding; Z90.49 Acquired absence of other specified parts of digestive tract; R91.1 Solitary pulmonary nodule; J30.9 Allergic rhinitis, unspecified; Z53.31 Laparoscopic surgical procedure converted to open procedure
CPT/HCPCS: 47600; 00123; 36415; 80053; 83690; 87077; 93005; 96361; 96365; 96375; 99285; 74177; 81003; 81015; 85025; 87070; 87075; 87205; 88304; 93010; 94760; J0131; J1100; J1885; J2001; J2250; J2270; J2371; J2405; J2543; J2704; J3010; J3475; J3490

== ENCOUNTER 2023-09-10 11:51 | Outpatient (REF) | payer OTHER, SELFPAY ==
[2023-09-10 14:57] LABS: Hemoglobin A1C 5.5 % (<5.7)
[2023-09-10 15:08] LABS: Calculated LDL 91 mg/dL (<100); Cholesterol 167 mg/dL (<200); HDL Cholesterol 44 mg/dL (40-60); Triglyceride 161 mg/dL (<150)
== END 2023-09-10 11:52 | disposition home or self-care (01) ==
LOC: NCHCN 11:51
PROVIDERS: PCP Nurse Practitioner Family; Referring Provider Nurse Practitioner Family; Visit Provider Nurse Practitioner Family
DX: E66.9 Obesity, unspecified (principal); R73.09 Other abnormal glucose
CPT/HCPCS: 80061; 83036

== ENCOUNTER → 2024-08-22 09:43 | Outpatient (BNVA) | payer BC, MEDICAID, SELFPAY | PROVIDERS: PCP Nurse Practitioner Family; Referring Provider Nurse Practitioner Family; Visit Provider Nurse Practitioner Gerontology | DX: R36.1 Hematospermia (principal) | CPT/HCPCS: 81003; 99213 ==

== ENCOUNTER 2024-08-25 21:31 | Outpatient (REF) | payer BC, MEDICAID, SELFPAY ==
[2024-08-25 14:58] LABS: Bilirubin Negative (Negative); Blood Negative (Negative); Clarity Clear (Clear); Glucose Negative (Negative); Ketones Negative (Negative); Leukocyte Esterase Negative (Negative); Nitrite Negative (Negative); Urobilinogen 0.2 mg/dL (Up to 0.2)
[2024-08-25 15:15] LABS: COMMENT (LAB VIEW ONLY) 43.83 mg/dL; Microalb ug/mg Crea 18.7 ug/mg Cr
== END 2024-08-25 21:32 | disposition home or self-care (01) ==
LOC: NCHCN 21:31
PROVIDERS: PCP Nurse Practitioner Family; Visit Provider Nurse Practitioner Family
DX: I10 Essential (primary) hypertension (principal)
CPT/HCPCS: 81003; 82043; 82570

== ENCOUNTER 2024-10-17 04:34 | Outpatient (CLI) | payer BC, MEDICAID, SELFPAY ==
[2024-10-17 18:14] LABS: PSA, Screening 0.3 ng/mL (<=3.5)
== END 2024-10-17 04:35 | disposition home or self-care (01) ==
LOC: LBO 04:35
PROVIDERS: PCP Nurse Practitioner Family; Visit Provider Nurse Practitioner Gerontology
DX: N40.1 Benign prostatic hyperplasia with lower urinary tract symptoms (principal); R39.9 Unspecified symptoms and signs involving the genitourinary system
CPT/HCPCS: 36415; 84153

== ENCOUNTER → 2024-10-24 09:53 | Outpatient (BNVA) | payer BC, MEDICAID, SELFPAY | PROVIDERS: PCP Nurse Practitioner Family; Visit Provider Nurse Practitioner Gerontology | DX: R36.1 Hematospermia (principal) | CPT/HCPCS: 99213 ==